=== PATIENT | female | born 1960 | race Caucasian/White ===

== ENCOUNTER 2025-06-05 12:38 | Inpatient (IN) | payer MEDICARE, MEDICAID ==
[~2025-06-05] VITALS: Ht 152.4 cm; Wt 63.0 kg
[~2025-06-05 12:38] MED LIST: PHE25R PR; ZOF4T PO
--- NOTE | 2025-06-05 14:59 | RADIOLOGY REPORT ---
X-ray left knee Technique: AP and lateral views REASON FOR EXAM: LT.KNEE PAIN AFTER FALL INDICATION: LT.KNEE PAIN AFTER FALL FINDINGS: No fractures or dislocations. No erosions or periosteal reaction. Articular surfaces are smooth. IMPRESSION: 1. No acute bony pathology
--- NOTE | 2025-06-05 15:00 | RADIOLOGY REPORT ---
X-ray left ankle Technique: AP lateral and oblique views REASON FOR EXAM: LT.ANKLE PAIN AFTER FALL INDICATION: LT.ANKLE PAIN AFTER FALL FINDINGS: No fractures or dislocations. No erosions or periosteal reaction. Articular surfaces are smooth. IMPRESSION: 1. No acute bony pathology
--- NOTE | 2025-06-05 19:45 | RADIOLOGY REPORT ---
EXAM: DI CHEST,SINGLE VIEW TECHNIQUE: Single frontal chest radiograph CLINICAL HISTORY: Weakness/ Portabl eplease COMPARISON: None FINDINGS/IMPRESSION: The lungs are clear. The cardiomediastinal silhouette is unremarkable. No pleural effusion or pneumothorax. No acute osseous abnormality.
[2025-06-05 19:49] LABS: MEAN PLATELET VOLUME 7.0 FL (7.4-10.4); RED CELL DISTRIBUTION WIDTH 13.7 % (11.5-14.5)
--- NOTE | 2025-06-05 19:54 | ELECTROCARDIOGRAPH REPORT ---
[facility] Test Date: 2025-06-05 Test Time: 19:50:23 Pat Name: CONCEPCION ROLLINS Department: [facility] Patient ID: [facility]-[id number] Room: [place] [address] Gender: F Food Service Manager: : 1960 Requested By: SIMI PADILLA Order Number: [id number] Reading MD: Dr. Boni Marie Measurements Intervals [place] Rate: 68 P: 66 CA: 161 QRS: 35 QRSD: 95 T: 31 QT: 421 QTc: 448 Interpretive Statements Sinus rhythm Abnormal R-wave progression, early transition Baseline wander in lead(s) I,III,aVL Electronically Signed On 06-15-2025 21:53:[address] Boni Marie Please click the below link to view image of tracing.
[2025-06-05 20:01] LABS: APTT 28 SECONDS (22-32); INR 1.0 INR
--- NOTE | 2025-06-05 20:04 | RADIOLOGY REPORT ---
COMPUTERIZED TOMOGRAPHY OF THE HEAD WITHOUT CONTRAST REASON FOR STUDY: ataxia. Fell 3 weeks ago on the left side. Blood thinners. COMPARISON: None TECHNIQUE: Helical tomographic scans were obtained through the brain. 2-D coronal and sagittal reformatted images are provided. Radiation optimization: All CT scans at this facility use at least one of these dose optimization techniques: Automated exposure control mA and/or kV adjustment per patient size (includes targeted exams where dose is matched to clinical indication) or iterative reconstruction. RADIATION DOSE: CTDI: 57 mGy DLP: 986 mGy-cm FINDINGS: No suspicious intracranial hyperdensity to suggest acute blood. There is an old lacunar infarct in the left centrum semiovale. There is no mass effect nor midline shift. There is moderate generalized volume loss with greater than expected enlargement of the CSF spaces, which could represent normal pressure hydrocephalus in the correct clinical setting. The suprasellar cistern is intact. There are scattered periventricular and deep white matter hypodensities that are most consistent with chronic microangiopathic changes. The calvarium is intact. The visualized mastoid air cells and paranasal sinuses are clear. IMPRESSION: No acute intracranial hemorrhage. Moderate generalized volume loss with chronic small vessel ischemic change. There is greater than expected compensatory enlargement of the ventricular system which could represent normal pressure hydrocephalus in the correct clinical setting. Correlate clinically for NPH.
[2025-06-05 20:17] LABS: CREATININE 0.82 MG/DL (0.40-0.90); TOTAL CARBON DIOXIDE 29.8 MMOL/L (24-32); eCRCL 52 ML/MIN; eGFR 70 ML/MIN
--- NOTE | 2025-06-05 20:18 | RADIOLOGY REPORT ---
History: Hip pain with unsteady gait Comparison Study: None Technique: Multidetector spiral CT of the pelvis was performed from iliac crests to pubic symphysis. Axial, coronal and sagittal multiplanar reformats were performed by the technologist on a separate workstation. Radiation Dose : CT Dose: CTDI volume is 19.74 mGy. Dose-length product is 675.62 mGy*cm Findings: Visualized bowel: Large volume of stool throughout the colon. Ascites: Absent Lymphadenopathy: No pelvic or mesenteric lymphadenopathy. Pelvis wall and Mesentery: Unremarkable. Pelvic Organs: Unremarkable Musculoskeletal: No aggressive focal bony lesions, acute fractures or dislocation. Bladder: Unremarkable IMPRESSION: 1. No acute pelvic finding. END IMPRESSION:
--- NOTE | 2025-06-05 21:07 | Physician Documentation ---
History of Present Illness ~ Chief Complaint: Leg Pain Stated Complaint: FELL 3 WKS AGO-L LEG INJURED Time Seen by MD: 15:00 Primary Medical Doctor: Dr. Choe, Dr. Muniz Mode of Arrival: Wheelchair HPI He is otherwise active 64-year-old female who swims at the local [facility] until 2- 1/2 weeks ago when she had a mechanical fall without loss of consciousness. Visited her primary care physician and has been being treated with was believed to be corticosteroid injections to the left hip for a sciatica. Since the fall patient has been having difficulty with ambulation. Reports she is unable to bear weight on the left lower extremity. No clear picture of ataxia yet just difficulty with ambulation. She does not specifically complain of left hip pain and has no obvious palsy to the left lower extremity or leg length discrepancy. She denies headache, incontinence, fever nausea or vomiting or diarrhea. Patient is otherwise healthy with a history of high blood pressure that is well controlled. Additionally patient reports a bilateral upper extremity weakness and yet no symptoms at all to the right lower extremity. She is referred to the emergency department by her primary care physician for neuromuscular workup. He has been no ocular disturbances though she does have a history of macular degeneration and there has been no scanning speech. Tetanus witin 5 years: No Medication Reconciliation Allergies: Coded Allergies: pneumococcal vaccine (Verified Allergy, Intermediate, 06/05/25) Scheduled Amlodipine* (Norvasc*), 1 TAB PO DAILY, (Reported) Atorvastatin Calcium* (Lipitor*), 1 TABLET PO HS, (Reported) Bupropion Hcl SR* (Wellbutrin SR*), 2 TAB PO DAILY, (Reported) Carvedilol* (Coreg*), 1 TAB PO DAILY, (Reported) Fexofenadine* (Louisa*), 1 TAB PO DAILY, (Reported) Gabapentin (Gabapentin), 1 TAB PO DAILY, (Reported) Levothyroxine Sodium* (Synthroid*), 1 TAB PO DAILY, (Reported) Lisinopril* (Lisinopril*), 1 TAB PO DAILY, (Reported) Secukinumab (Cosentyx Pen), 1 SYR SUBCUT Q28D, (Reported) Scheduled PRN Oxycodone Hcl IR* (Oxycodone IR*), 2 TAB PO Q8H PRN for moderate or severe pain, (Reported) Tramadol HCl (Tramadol HCl), 1 TAB PO Q6H PRN PRN for pain, (Reported) Discontinued Medications Ondansetron ODT* (Zofran ODT*), 8 MG PO Q6H Discontinued Reason: patient no longer taking proMETHazine (PHENERGAN rectal suppository), 25 MG DC Q6H Discontinued Reason: patient no longer taking Past Medical History Past Medical History: Hypertension Past Surgical History: noncontributory Alcohol Use: None Lives with: S/O Lives In: Home Occupation: disabled Physical Exam Vital Signs: Temperature: 97.8, Source: Oral, Heart Rate: 77, Respiratory Rate: 16, BP: 117/81, Pulse Oximetry: 92, Weight: 63.000 Oxygen Flow Rate: 0 Progress Results/Orders Results/Orders Orders - SIMI PADILLA PAC Ct Head (06/05/25 19:30) Ct Pelvis (06/05/25 19:30) Chest,Single View (06/05/25:25) Hospitalist Icu Consultation (06/05/25 21:05) Fill Out Med Reconciliation (06/05/25 21:05) Completed Orders - SIMI PADILLA PAC Ct Head (06/05/25 19:30) Ct Pelvis (06/05/25 19:30) Cbc/Diff (06/05/25 19:21) CMP (06/05/25 19:21) Stat Ekg (06/05/25 ) Hs Troponin I W Calculations (06/05/25 19:21) Urinalysis, Cult If Indicated (06/05/25 19:21) Chest,Single View (06/05/25:25) Pt Inr (06/05/25 19:21) PTT (06/05/25 19:21) CK (06/05/25 19:32) PHOS (06/05/25 19:32) TSH (06/05/25 19:32) Hgb A1c (06/05/25 19:32) Vital Signs 06/05/25 06/05/25 06/05/25 06/05/25 12:44 17:18 17:49 20:01 Temp 97.8 97.8 Pulse 70 65 77 Resp 18 14 16 B/P (MAP) 122/68 127/83 (98) 117/81 (93) Pulse Ox 98 98 92 O2 Flow Rate 0 0 0 Laboratory Tests Test 06/05/25 19:21 06/05/25 19:32 06/05/25 21:20 White Blood Count 5.4 Red Blood Count 3.77 L Hemoglobin 12.3 Hematocrit 35.4 Mean Corpuscular Volume 94.0 Mean Corpuscular Hemoglobin 32.8 H Mean Corpuscular Hemoglobin Concent 34.9 Red Cell Distribution Width 13.7 Platelet Count 319 Mean Platelet Volume 7.0 L Neutrophils (%) (Auto) 52.1 Lymphocytes (%) (Auto) 28.8 Monocytes (%) (Auto) 11.9 Eosinophils (%) (Auto) 5.9 Basophils (%) (Auto) 1.3 H Neutrophils # (Auto) 2.8 Lymphocytes # (Auto) 1.6 Monocytes # (Auto) 0.6 Eosinophils # (Auto) 0.3 Basophils # (Auto) 0.1 CBC Comment Erythrocyte Sedimentation Rate 38 H Prothrombin Time 10.1 INR International Normalized Ratio 1.0 Activated Partial Thromboplast Time 28 Coagulation Comments Sodium Level 140 Potassium Level 4.9 Chloride Level 104 Carbon Dioxide Level 29.8 Anion Gap 6 L Blood Urea Nitrogen 15 Creatinine 0.82 Estimated GFR/1.73 m2 70 BUN/Creatinine Ratio 18.3 Glucose Level 82 Hemoglobin A1c 5.8 Calcium Level 8.6 Phosphorus Level 4.1 Total Bilirubin 0.3 Aspartate Amino Transf (AST/SGOT) 28 Alanine Aminotransferase (ALT/SGPT) 31 Alkaline Phosphatase 100 Total Creatine Kinase 114 Troponin I High Sensitivity 4 Total Protein 6.8 Albumin 3.0 L Globulin 3.8 Albumin/Globulin Ratio 0.8 L Thyroid Stimulating Hormone (TSH) 3.35 Chemistry Comments Urine Specimen Description Straight cath Urine Color Yellow Urine Clarity Clear Urine pH 6.0 Urine Specific [place] <=1.005 Urine Protein Negative Urine Glucose (UA) Negative Urine Ketones Negative Urine Occult Blood Negative Urine Nitrite Negative Urine Bilirubin Negative Urine Urobilinogen 0.2 Urine Leukocyte Esterase Negative Urine Culture Indicated Not ind Volume Urine Centrifuged 10 ml Urine Comment Medical Decision Making Additional Comment 64-year-old female brought to the emergency department unfortunately due to the department being busy had a weight nearly 5 hours before being seen yet she did have plain film imaging obtained which was reassuring. Initial evaluation she is well oriented. Neurovascular exam is pertinent for 4/5 upper extremity strength and motor, left lower extremity 3/5 with an intact EHL, plantar flexion, dorsiflexion flexion at the knee and no pain with abduction or adduction of the hip. CT imaging obtained of the head to evaluate for Intracranial etiologies and also CT of the pelvis to evaluate for bony pathologies not excluding meds. Labs obtained and reviewed with the patient. Decision to consult for admission was at the time patient was put into room eight. She needs further evaluation and workup that included additional laboratory imaging and Neuro workup that may include MRIs for considerations of Neuro etiologies/pathologies, Autoimmune and/or Infectious etiologies pathologies. CT imaging of the head is reassuring yet suggested by the radiologist that imaging may represent in the right setting normal pressure hydrocephalus. Patient is without any ataxia essentially she can not bear weight, wet or wobbly. This interesting internal medicine case was discussed with the hospitalist kindly will admit for further workup. She remains while alert and oriented and pending transfer to the floor. Departure Disposition: 09 ADMITTED INPATIENT Admitted to Inpatient Unit: to hospitalist Impression: Primary Impression: Neuromuscular weakness Additional Impression: History of recent fall Referrals: NO PRIMARY CARE PROVIDER (PCP) Signature Scribe Signature: . Attestation: . SIMI PADILLA PAC Jun 05, 2025 21:07
[2025-06-05 21:54] LABS: LEUKOCYTE ESTERASE ,URINE NEGATIVE (Neg); NITRITES, URINE NEGATIVE (Neg); OCCULT BLOOD,URINE NEGATIVE (Neg)
[2025-06-05 21:57] LABS: UA COLLECTION TYPE STRAIGHT CATH
[2025-06-05] MEDS ORDERED: magnesium sulf-water 4G/100mL 100 ML IV PRN (22:10)
[2025-06-05] MEDS ORDERED: potassium Cl 40MEQ/1/2NS 520ml 520 ML IV PRN (22:10)
[2025-06-05] MEDS ORDERED: magnesium Cl slow-release 64mg tablet PO PRN (22:10)
[2025-06-05] MEDS ORDERED: potassium Cl 20 mEq SR tablet PO PRN ×2 (22:10)
[2025-06-05] MEDS ORDERED: magnesium sulf-water 2g/50mL 50 ML IV PRN (22:10)
[2025-06-05] MEDS ORDERED: mag hydrox/Alum hydrox/simeth 30ml oral suspension PO PRN (22:10)
[2025-06-05] MEDS ORDERED: magnesium hydroxide 30ml (MOM) UD suspension PO PRN (22:10)
--- NOTE | 2025-06-05 22:29 | CONSULTATION REPORT ---
History of Present Illness Providers to CC ~ Refering MD: Dr. Choe, Dr. Muniz Allergies: Coded Allergies: pneumococcal vaccine (Verified Allergy, Intermediate, 06/05/25) Home Medications Home Medications Active PHENERGAN rectal suppository (proMETHazine) 25 Mg Supp.rect 25 Mg PA Q6H Zofran ODT* (Ondansetron HCl) 4 Mg Tab.rapdis 8 Mg PO Q6H Physical Exam Last Vital Signs Recorded: Temperature: 97.8, Source: Oral, Heart Rate: 75, Respiratory Rate: 19, BP: 96/55, Pulse Oximetry: 97, Weight: 63.000 Results Diagram Lab Result Diagram: 06/05/25192006/05/251931 Assessment/Plan [place] Neuro Note # Demographics Consult Type: General Neurology Patient Location: Emergency Room First Name: Sharifa Last Name: RIA Date of : 1960 Age: 64 Gender: Female Facility: [facility] Time of Initial Page (): 06/05/2025 22:15 First Contact with Site ( Time): 06/05/2025 22:15 # HPI History: 64F reporting 2 weeks left leg strength, bilateral hand weakness. Also tingling/numbness. Progressive during that time, urinary retention and falls reported. Deep tendon reflexes reportedly reduced left leg. Patient reports "sciatica" for a number of years. # Scores Time of exam and NIHSS (): 06/05/2025 22:25 Level of Consciousness 1a: [0] = Alert; keenly responsive LOC Questions 1b: [0] = Answers both questions correctly LOC Commands 1c: [0] = Performs both tasks correctly Best Gaze 2: [0] = Normal Visual 3: [0] = No visual loss Facial Palsy 4: [0] = Normal symmetrical movements Motor Arm Left 5a: [0] = No drift Motor Arm Right 5b: [0] = No drift Motor Leg Left 6a: [0] = No drift Motor Leg Right 6b: [0] = No drift Limb Ataxia 7: [2] = Present in two limbs Sensory 8: [0] = Normal Best Language 9: [0] = No aphasia Dysarthria 10: [0] = Normal Extinction and Inattention 11: [0] = No abnormality NIHSS Total: 2 # PMH-FH-SH Past Medical History: macular degeneration, left leg sciatica # Data Time Head CT personally read by me ([place] Time): 06/05/2025 22:[address]: - per radiologist read - no bleed - preliminarily reviewed by me, please refer to radiology read for official reading # Assessment Impression: - Weakness and sensory disturbance bilateral arms and left leg, with urinary dysfunction. Taken together, this is concerning for C-spine compression or other pathology at that location. # Plan Labs: - B12 Imaging: (urgency: routine): MRI C-spine w/wo JONATHAN Other: - If patient has any neurological deterioration please call me back immediately - I have discussed my recommendations with the referring provider Additional Recommendations: If no etiology on C-spine MRI, then consider atypical guillain-barre or other demyelinating neuropathic process, LP for cell count, diff, protein and glucose would be a consideration in that case. Also would test for [place] virus if LP done. Disposition: observation # Logistics Attestation of consult completion: The patient is located at: [facility]. Facility staff participated in the visit. I performed this telemedicine visit from my offsite office utilizing interactive 2 way audio and visual telecommunication technology at the request of the onsite emergency room provider. Consent: Verbal consent was obtained from the patient and/or family for this encounter. Total time spent in telemedicine encounter: I spent 20 minutes reviewing clinical data and/or imaging, obtaining history, examining the patient, communicating with the onsite care team, and in preparation of this report. # Demographics First Name: Sharifa Last Name: RIA Facility: [facility] MARYAN HAMPTON MD Jun 05, 2025 22:29
[2025-06-05 22:35] LABS: PHOSPHORUS 4.1 MG/DL (2.3-4.5)
[2025-06-05] MEDS: LidoCAINE 2% Topical Jelly 11mL syringe (UROJET) TOP ONE (23:00)
--- NOTE | 2025-06-05 23:06 | HISTORY AND PHYSICAL-Residence ---
History & Physical Providers to CC Resident Creating Document: FRANCIS SMITH RES ~ History of Present Illness Primary Medical Doctor: Dr. Choe, Dr. Muniz Reason for Admit\Complaint: Left leg weakness History of Present Illness This is a 64-year-old female patient who presents in the ER for progressive weakness in the left leg and bilateral upper extremities for the past two weeks. Patient felt sudden strength loss in the left leg associated with diminished sensation. She also complains of tingling, numbness and weakness in both hands, more pronounced in the left hand. Patient has chronic left sciatic pain but states that never felt weakness or loss of sensation. She has been unable to ambulate since the symptoms started and has feeling of incomplete voiding, but denies dysuria, hematuria or suprapubic pain. Patient also denies head trauma, headache, blurred vision, slurred speech or syncope. No cardiac, respiratory or abdominal symptoms reported. Allergies: Coded Allergies: pneumococcal vaccine (Verified Allergy, Intermediate, 06/05/25) Home Medications Home Medications Active PHENERGAN rectal suppository (proMETHazine) 25 Mg Supp.rect 25 Mg [place] Q6H Zofran ODT* (Ondansetron HCl) 4 Mg Tab.rapdis 8 Mg PO Q6H Past Medical History Past Medical History Hypertension Hypothyroidism Hyperlipidemia Chronic back pain Chronic Left leg sciatic pain Chronic diarrhea Bilateral macular degeneration Depression ADHD Past Social History Smoking: Quit greater than 1 year (Patient quit smoking in 2005) Alcohol Use: None Drug Use: None Lives with: Family Lives In: Home Occupation: disabled ROS Constitutional: Reports: malaise, weakness Eyes: Denies: no symptoms reported, see HPI, pain, discharge, blurred vision, double vision, itching, photophobia, redness, tearing, other ENT: Denies: no symptoms reported, see HPI, ear pain, ear bleeding, ear discharge, hearing loss, ear ringing, nose pain, nose bleeding, nose congestion, nose discharge, throat pain, throat swelling, voice change, mouth pain, mouth bleeding, mouth swelling, other Respiratory: Denies: no symptoms reported, see HPI, cough, orthopnea, shortness of breath, SOB with exertion, SOB at rest, stridor, wheezing, hemoptysis, pain with breathing, other Cardiovascular: Denies: no symptoms reported, see HPI, chest pain, left arm pain, diaphoresis, lightheadedness, syncope, edema, palpitations, irregular heart rate, other Gastrointestinal: Denies: no symptoms reported, see HPI, abdomen distended, abdominal pain, nausea, vomiting, diarrhea, constipated, melena, hematemesis, hematochezia, rectal bleeding, rectal pain, dysphagia, poor appetite, poor fluid intake, other Genitourinary: Reports: decreased urine output Female Genitalia: Denies: no reported symptoms, see HPI, vaginal discharge, vaginal pain, pelvic pain, abnormal bleeding, dyspareunia, , other Neurological: Reports: dizziness, left sided numbness, left sided weakness Musculoskeletal: Reports: back pain Integumentary: Denies: no symptoms reported, see HPI, rash, itching, lesions, lumps, bruise(s), wound(s), laceration(s), dryness, change in color, other Allergic/Immunologic: Denies: no symptoms reported, see HPI, hives, itching, frequent infections, difficulty healing, other Hematologic/Lymphatic: Denies: no symptoms reported, see HPI, anemia, blood clots, easy bleeding, easy bruising, swollen glands, other Endocrine: Denies: no symptoms reported, see HPI, excessive sweating, flushing, intolerance to cold, intolerance to heat, increased hunger, increased thrist, increased urine, unexplained weight gain, unexplained weight loss, other Psychiatric: Denies: no symptoms reported, see HPI, depression, anxiety, sleeplessness, hopeless, suicidal, hallucinations, other Exam Vitals: Vital Signs Date Time Temp Pulse Resp B/P (MAP) Pulse Ox O2 Delivery O2 Flow Rate FiO2 06/05/25 22:06 97.8 75 19 96/55 (69) 97 0 General: Awake , alert, and oriented x4, resting comfortably in the bed, no acute distress HEENT: Atraumatic, normocephalic, EOMI, anicteric sclera ; pink conjunctiva Neck: Trachea midline. Supple, full range of motion, no JVD Cardiac: Regular rhythm and rate, no murmurs or gallop Respiratory: Equal breath sounds bilaterally, no tachypnea, no wheezing ,rub or rales, Chest: No accessory muscle use, lung bases clear to auscultation bilaterally Gastrointestinal: Abdomen symmetric, non-distended, soft, non-tender, normal bowel sounds, normoactive, no organomegaly Musculoskeletal: No cyanosis,clubbing or edema Skin: Warm and dry Neurological: - Mental status exam: alert and oriented. Memory and speech preserved. - Cranial nerve test: Cranial nerves 2-12 intact - Motor system: Normal muscle tone, left leg strength 4/5. Proximal upper extremity strength is preserved. Distal upper extremity strength is 4/5. No involuntary movements noted. - Sensory system: Reduced sensation in the left lower extremity. - Reflex testing: Diminished left patellar reflex 1+. Biceps and triceps reflex preserved. - Cerebellar: No dysdiadochokinesia or nystagmus. Gait and Romberg test unable to perform. Patient was not able to stand up by herself. Diagnostic Data Last Recorded Lab Results: 06/05/25192006/05/251931 Diagnostic Data: Laboratory Tests Test 06/05/25 19:32 Prothrombin Time 10.1 SECONDS (9.0-12.0) INR International Normalized Ratio 1.0 INR Activated Partial Thromboplast Time 28 SECONDS (22-32) Coagulation Comments Additional Plan Assessment 64-year-old female patient admitted for bilateral upper extremity and left leg weakness and paresthesia. Subacute left leg and bilateral upper extremity weakness - unclear etiology Differential diagnosis include cervical spine compression, demyelinating disease such as atypical Guillain-Hardin and normal pressure hydrocephalus Sudden onset left leg weakness Distal bilateral upper extremity weakness, numbness and tingling Recurrent falls and urinary dysfunction No fever, headache, vision or speech change Head CT: No acute intracranial hemorrhage. Moderate generalized volume loss with chronic small vessel ischemic change. There is greater than expected compensatory enlargement of the ventricular system which could represent normal pressure hydrocephalus in the correct clinical setting. Correlate clinically for NPH. Plan Tele neurology consulted Ordered head MRI and cervical spine MRI with and without contrast Ordered thoracic and lumbar spine MRI Ordered TSH, vitamin B12, ESR, rheumatoid factor and antinuclear antibodies Fall and aspiration precautions Neuro checks Physical therapy evaluation Comorbidities: Hypertension: Well-controlled hypertension, continue home medication Hypothyroidism: Ordered TSH, continue levothyroxine Hyperlipidemia: Ordered lipid panel, continue atorvastatin. Chronic back pain: Morphine/[place] p.r.n. Chronic diarrhea: Three daily bowel movements four months. Outpatient evaluation recommended. Bilateral macular degeneration: Outpatient management. Depression and ADHD: Continue home medication after med reconciliation. Code Status: Full code DVT prophylaxis: Lovenox Analgesia/sedation: Morphine/[place] Line/tube: PIV GI prophylaxis: None Nutrition: Regular diet Prognosis: Guarded Disposition: Admit to neuro floor. Pending MRI. Pending med reconciliation. Patient seen and evaluated using HIPPA compliant AV device Agree with plan as discussed with the resident Kirt Rodriguez MD Date of Service: Jun 05, 2025 Billing Provider: KIRT RODRIGUEZ MD, LUCAS, RES Jun 05, 2025 23:06 KIRT RODRIGUEZ MD Jun 06, 2025 02:59
[2025-06-05] MEDS ORDERED: FEXO180T94 PO (23:41)
[2025-06-05] MEDS ORDERED: TRAM50TA2 PO (23:41)
[2025-06-05] MEDS ORDERED: SECU150P2 SUBCUT (23:41)
[2025-06-05] MEDS ORDERED: OXYC-658 PO (23:41)
[2025-06-05] MEDS ORDERED: ATOR20TA PO (23:41)
[2025-06-05] MEDS ORDERED: SYN0.088T PO (23:41)
[2025-06-05] MEDS ORDERED: BUPR150T8 PO (23:41)
[2025-06-05] MEDS ORDERED: CARV-50 PO (23:47)
[2025-06-05] MEDS ORDERED: AMLO2.5T2 PO (23:47)
[2025-06-05] MEDS ORDERED: GABA-1405 PO (23:47)
[2025-06-05] MEDS ORDERED: LISI40TA20 PO (23:47)
[2025-06-06] VITALS (7 sets, daily range): BP systolic 105–129; BP diastolic 63–78; PULSE 68–92; RESP 12–16; TEMP 97.4–98; O2SAT 96–100
[2025-06-06] MEDS: HYDROcodone/acetaminophen 10/325mg tab PO PRN (00:15)
[2025-06-06 05:36] LABS: MEAN PLATELET VOLUME 7.3 FL (7.4-10.4); RED CELL DISTRIBUTION WIDTH 13.6 % (11.5-14.5)
[2025-06-06 06:05] LABS: CHOL/HDL RATIO 2.9 (0.00-4.99); CREATININE 0.84 MG/DL (0.40-0.90); LDL CHOLESTEROL 88 MG/DL (50-100); TOTAL CARBON DIOXIDE 26.2 MMOL/L (24-32); eCRCL 50 ML/MIN; eGFR 68 ML/MIN
[2025-06-06] MEDS: K and/or MAG REPLACEMENT MC SCH (07:15)
[2025-06-06] MEDS: levoTHYROXINE 88mcg tablet PO SCH (07:16)
[2025-06-06] MEDS: docusate sod 100mg capsule PO SCH (07:16)
[2025-06-06] MEDS: buPROPion SR 150mg tablet PO SCH (07:16)
[2025-06-06] MEDS: enoxaparin 40mg/0.4ml syringe SUBCUT SCH (07:17)
[2025-06-06] MEDS ORDERED: non-formulary drug (Gabapentin 1 TAB) PO SCH (08:00)
--- NOTE | 2025-06-06 18:08 | RADIOLOGY REPORT ---
PROCEDURE: MR MRI HEAD Indication: Progressive weakness left leg and bilateral upper extremities COMPARISON: CT CT HEAD on DOS: 06/05/25 TECHNIQUE: Multiplanar multisequence images of the brain are obtained. FINDINGS: There is no abnormal diffusion restriction. There is no intracranial hemorrhage. No extra-axial fluid collection, mass effect or midline shift. The ventricles are moderately prominent size. Mild periventricular and subcortical white matter T2 and FLAIR hyperintense changes.. The cisterns are patent. Normal intracranial flow voids are preserved. No abnormal susceptibility signal. Mild global cerebral volume loss. Mucosal thickening ethmoids. Mastoids well pneumatized.. The visualized orbits are unremarkable. IMPRESSION: No acute cerebrovascular ischemia. Prominent size of the lateral ventricles. Correlate for entities such as normal pressure hydrocephalus. Mild chronic microvascular ischemic changes.
--- NOTE | 2025-06-06 18:19 | RADIOLOGY REPORT ---
PROCEDURE: MR MRI C SPINE, MR MRI THORACIC SPINE, MR MRI LUMBAR SPINE Indication: Progressive weakness left leg and bilateral upper extremities COMPARISON: None TECHNIQUE: Multiplanar multisequence images of the the cervical and thoracic spine are obtained. FINDINGS: MRI cervical spine Examination degraded by motion. Cervical heights are maintained. Moderate to severe multilevel disc space narrowing and desiccation. Degenerative edematous endplate changes most pronounced at C4, C5 and C6. No prevertebral edema. Atlantooccipital, atlantoaxial articulations intact. There is increased T2 signal within the cervical cord at the C3-4 level secondary to cord compression. There is a region of increased T2 signal within the cervical cord at the level of the C5 vertebral body level measuring 3 x 3 mm. C2-3: Small disc osteophyte complex. Narrowing of the ventral and dorsal CSF spaces. Thecal sac measures 10 mm AP. No spinal canal stenosis. Djmv-bi-dcmgansh bilateral neural foraminal stenosis. C3-4: Large disc osteophyte complex. Flavum hypertrophy. Effacement of the ventral and dorsal CSF space with compression of the cord. Thecal sac measures 4 mm AP. Severe spinal canal stenosis. Increased T2 signal within the cervical cord. Moderate to severe right and moderate left neural foraminal stenosis. C4-5: Disc osteophyte complex narrowing ventral and dorsal CSF spaces. Thecal sac measures 7 mm AP. Moderate spinal canal stenosis. Moderate to severe bilateral neural foraminal stenosis secondary to facet and uncovertebral hypertrophy. C5-6: Disc osteophyte complex narrowing the ventral and dorsal CSF spaces. Thecal sac measures 8 mm AP. Yjwo-lf-wfpacaei spinal canal stenosis. Severe right and moderate left neural foraminal stenosis secondary to facet uncovertebral hypertrophy. C6-7: Small disc osteophyte complex. Thecal sac 9 mm AP. Mild spinal canal stenosis. Severe bilateral neural foraminal stenosis. C7-T1: No spinal canal stenosis. Moderate to severe right and yltr-rj-pnydaedk left neural foraminal stenosis. MRI thoracic spine: The Thoracic vertebral body heights are maintained. There is bbmc-al-jwfdgdjh multilevel disc space narrowing and desiccation. T8-9 there is a central disc protrusion extending 5 mm which compresses upon the ventral aspect of the cord. Thecal sac measures 7 mm AP at this level consistent with moderate spinal canal stenosis No high-grade neural foraminal stenosis. No abnormal marrow edema. MRI lumbar spine: The lumbar vertebral body heights are maintained. Moderate to severe multilevel disc space narrowing and desiccation most pronounced at L4-5. Degenerative fatty endplate changes at L2-3. There are also marrow edematous changes at L2-3. The conus terminates at the level of the L1-2 disc space level. T12-L1: Small disc protrusion. Ekym-tq-mbjdaaxk facet and flavum hypertrophy no spinal canal stenosis. Mild bilateral neural foraminal stenosis. L1-2: 3 mm disc protrusion. Lewn-dl-omahopql facet and flavum hypertrophy. No spinal canal stenosis. Rsun-ee-qenooicz bilateral neural foraminal stenosis. L2-3: 3 mm disc protrusion. Acev-tk-iadoiwgg facet and flavum hypertrophy. No spinal canal stenosis moderate to severe left and moderate right neural foraminal stenosis. L3-4: 2 mm disc protrusion. Dzip-xy-gfgzuzri facet and flavum hypertrophy. No spinal canal stenosis. Moderate to severe bilateral neural foraminal stenosis. L4-5: Broad-based disc protrusion extending 5 mm posteriorly. Severe facet and flavum hypertrophy. Thecal sac measures 5 mm AP. Severe spinal canal stenosis. Severe bilateral neural foraminal stenosis. L5-S1: 3 mm disc protrusion. Severe facet and flavum hypertrophy thecal sac measures 6 mm AP. Moderate spinal canal stenosis. Severe bilateral neural foraminal stenosis. Colonic diverticular disease.m perineural ceases at S2 measuring 1.8 cm. IMPRESSION: Examination degraded by motion. Cervical Spine: Moderate to severe cervical degenerative disc disease. Severe spinal canal stenosis at C3-4 where there is compression/flattening of the cord with increased T2 signal in the cord either representing cord edema or myelomalacia. Recommend neurosurgical consultation. Moderate spinal canal stenosis at C4-5. Kmjs-bm-nddrjmdr spinal canal stenosis C5-6. Mild spinal canal stenosis C6-7. Multilevel moderate to severe cervical neural foraminal stenosis described. Thoracic Spine: Region of increased T2 signal within the cervical cord at the level the C5 level measuring 3 x 3 mm, possibly myelomalacia however underlying cervical lesion can not be ruled out. Recommend cervical spine MRI with contrast. Hcdg-il-lsfbawuq thoracic degenerative disc disease. There is a disc protrusion extending 5 mm at T8-9 which compresses upon the ventral aspect of the cord resulting in moderate spinal canal stenosis at T8-9. Lumbar spine: Severe spinal canal stenosis at L4-5. Moderate spinal canal stenosis L5-S1. Multilevel moderate to severe neural foraminal stenosis in the lumbar spine most pronounced at L4-5 and L5-S1.
--- NOTE | 2025-06-06 19:06 | PROGRESS NOTE- Residence ---
Progress Note - Resident Providers to CC Resident Creating Document: NASIMA LATIF RES ~ Antibiotic Timeout Antibiotic Ordered?: No Subjective patient was examined at bed side, she was sleeping intially and second time she was awake, alert and answer questions with out discomfort. Patient denies any new symptoms Objective Vital Signs Date Time Temp Pulse Resp B/P (MAP) Pulse Ox O2 Delivery O2 Flow Rate FiO2 06/06/25 14:15 15 06/06/25 10:00 98.0 80 105/63 (77) 97 Room Air 06/05/25 22:06 0 Result Diagram: 06/06/25 0455 06/06/25 0455 Awake , alert, and oriented x4, resting comfortably in the bed, no acute distress HEENT: Atraumatic, normocephalic, EOMI, anicteric sclera ; pink conjunctiva Neck: Trachea midline. Supple, full range of motion, no JVD Cardiac: Regular rhythm and rate, no murmurs or gallop Respiratory: Equal breath sounds bilaterally, no tachypnea, no wheezing ,rub or rales, Chest: No accessory muscle use, lung bases clear to auscultation bilaterally Gastrointestinal: Abdomen symmetric, non-distended, soft, non-tender, normal bowel sounds, normoactive, no organomegaly Musculoskeletal: No cyanosis,clubbing or edema Skin: Warm and dry Neurological: patient is alert, oriented. Memory and speech preserved. Cranial nerves II-XII intact Hypotonia in all 4 limbs. B/L lOWER EXTREMITY POWER- 3/5. Proximal upper extremity strength is preserved. Distal upper extremity strength is 4/5. No involuntary movements noted. Assyemtric Loss of sensations over all 4 limbs. cerebellum is intact. No menigeal signs. Coagulation Studies Laboratory Tests Test 06/05/25 19:32 Prothrombin Time 10.1 SECONDS (9.0-12.0) INR International Normalized Ratio 1.0 INR Activated Partial Thromboplast Time 28 SECONDS (22-32) Coagulation Comments Advance Care Planning Advanced Care plannin - 30 Minutes Assessment Assessment 64-year-old female patient admitted for Assymetric Quadriparesis.we will comnsult neurosufrgeon. Plan Plan 64-year-old female patient admitted for bilateral upper extremity and left leg weakness and paresthesia. Subacute Assyemtric Quadriparesis Diffuse Moderate to Severe Cervical Spinal Canal Stenosis C3-4 Cord Comnpression compression of T8-9 with Disc Protrusion Multilevel moderate to severe neural foraminal stenosis in the lumbar spine most pronounced at L4-5 and L5-S1. 2/2 Cord compression with Severe spinal canal stenosis at L4-5, Moderate spinal canal stenosis L5-S1. evere neural foraminal stenosis in the lumbar spine most pronounced at L4-5 and L5-S1. Severe spinal canal stenosis at L4-5. Moderate spinal canal stenosis L5-S1. Vitals -Stable h/h- 11.5/33.5 Pending THAIS MRI Head - No acute cerebrovascular ischemia. Prominent size of the lateral ventricles. Correlate for entities such as normal pressure hydrocephalus.Mild chronic microvascular ischemic changes. Cervical Spine MRI- Moderate to severe cervical degenerative disc disease. Severe spinal canal stenosis at C3-4 where there is compression/flattening of the cord with increased T2 signal in the cord either representing cord edema or myelomalacia. Recommend neurosurgical consultation. Moderate spinal canal stenosis at C4-5. Wluf-pb-easnzgwz spinal canal stenosis C5-6. Mild spinal canal stenosis C6-7. Multilevel moderate to severe cervical neural foraminal stenosis described. Thoracic Spine: Region of increased T2 signal within the cervical cord at the level the C5 level measuring 3 x 3 mm, possibly myelomalacia however underlying cervical lesion can not be ruled out. Recommend cervical spine MRI with contrast. Ytqc-hy-qhkvszas thoracic degenerative disc disease. There is a disc protrusion extending 5 mm at T8-9 which compresses upon the ventral aspect of the cord resulting in moderate spinal canal stenosis at T8-9. Lumbar spine: Severe spinal canal stenosis at L4-5. Moderate spinal canal stenosis L5-S1. Multilevel moderate to severe neural foraminal stenosis in the lumbar spine most pronounced at L4-5 and L5-S1. Thoracic Spine MRI - Region of increased T2 signal within the cervical cord at the level the C5 level measuring 3 x 3 mm, possibly myelomalacia however underlying cervical lesion can not be ruled out. Recommend cervical spine MRI with contrast. Wsnu-cm-ovvustrs thoracic degenerative disc disease.There is a disc protrusion extending 5 mm at T8-9 which compresses upon the ventral aspect of the cord resulting in moderate spinal canal stenosis at T8-9. Lumbar spine:Severe spinal canal stenosis at L4-5.Moderate spinal canal stenosis L5-S1. Multilevel moderate to severe neural foraminal stenosis in the lumbar spine most pronounced at L4-5 and L5-S1. Lumber Spine MRI: Cervical Spine: Moderate to severe cervical degenerative disc disease. Severe spinal canal stenosis at C3-4 where there is compression/flattening of the cord with increased T2 signal in the cord either representing cord edema or myelomalacia. Recommend neurosurgical consultation. Moderate spinal canal stenosis at C4-5. Eqkm-kx-yyfkermn spinal canal stenosis C5-6. Mild spinal canal stenosis C6-7. Multilevel moderate to severe cervical neural foraminal stenosis described. Thoracic Spine: Region of increased T2 signal within the cervical cord at the level the C5 level measuring 3 x 3 mm, possibly myelomalacia however underlying cervical lesion can not be ruled out. Recommend cervical spine MRI with contrast. Scfp-ws-uvmudlgm thoracic degenerative disc disease. There is a disc protrusion extending 5 mm at T8-9 which compresses upon the ventral aspect of the cord resulting in moderate spinal canal stenosis at T8-9. Lumbar spine:Severe spinal canal stenosis at L4-5.Moderate spinal canal stenosis L5-S1.Multilevel moderate to severe neural foraminal stenosis in the lumbar spine most pronounced at L4-5 and L5-S1. Plan: Neurosurgeon will be consulted Code Status: Full code DVT prophylaxis: Lovenox Analgesia/sedation: Morphine/[place] Line/tube: PIV GI prophylaxis: None Nutrition: Regular diet Prognosis: Guarded Disposition : Patient is monitored in Ortho/Neuro and MRI shows -Cord compression with Severe spinal canal stenosis at L4-5, Moderate spinal canal stenosis L5-S1. neural foraminal stenosis in the lumbar spine most pronounced at L4-5 and L5-S1 and in view of MRI Neurosurgeon will be Consulted meanwhile we will start Solu-Medrol high dose. Nasima latif PGY1 PGY-2 Note & addendum PGY2 resident attestation: I have seen and evaluated the patient independently. I have reviewed the history, physical examination, laboratory and imaging findings and the assessment and plan documented by the PGY1 resident. I agree with the findings and plan as documented with the following additions/modifications: Seen & Reviewed & edited the patient note. I agree with Management Plan. In view of Cervical,Thoracic Cord Compression and possible Cauda Equina Syndrome, We tried to Consult Neurosurgeon Dr. Michael Enriquez but we couldnot able to get hold of Him.we left the voicemail meanwhile we gave signout to Night Senior Resident for Neurosurgeon consultation & Started on Methyl Prednisolone high dose bag after informing the pharmacist (Mr. VILLALOBOS ).we will touch base with him if not we will try to transfer to Higher center for possible neurosurgical Intervention. Date of Service: Jun 06, 2025 Billing Provider: MARICRUZ WRIGHT MD Common Visit Codes: [id number] INP/OBS CARE(HIGH) NASIMA LATIF, RES Jun 06, 2025 19:06 SABINA BRAMBILA, RES Jun 06, 2025 19:35 MARICRUZ WRIGHT MD Jun 26, 2025 16:20
[2025-06-06] MEDS: methylPREDNISolone sod succ 1,000 MG in dextrose 5%-water 50ml 50 ML IV SCH (19:45)
[2025-06-06] MEDS ORDERED: [UNRECOGNIZED DRUG - OTHER] IV SCH (21:30)
[2025-06-06] MEDS ORDERED: WATER FOR INJECTION STERILE IV SCH (21:30)
[2025-06-06] MEDS ORDERED: METHYLPREDNISOLONE SOD SUCC IV SCH (21:30)
[2025-06-07] VITALS (7 sets, daily range): BP systolic 114–155; BP diastolic 64–83; PULSE 92–109; RESP 14–18; TEMP 96.7–99.3; O2SAT 94–99
[2025-06-07 06:03] LABS: MEAN PLATELET VOLUME 7.3 FL (7.4-10.4); RED CELL DISTRIBUTION WIDTH 13.5 % (11.5-14.5)
[2025-06-07 06:13] LABS: CREATININE 0.65 MG/DL (0.40-0.90); TOTAL CARBON DIOXIDE 25.0 MMOL/L (24-32); eCRCL 65 ML/MIN; eGFR > 90 ML/MIN
[2025-06-07 09:12] LABS: ANTINUCLEAR ANTIBODIES Positive (Negative)
[2025-06-07] MEDS ORDERED: ketorolac trometh 15mg/ml vial 15 MG/ML ML IV ONE (14:10)
--- NOTE | 2025-06-07 15:18 | PROGRESS NOTE- Residence ---
Progress Note - Resident Providers to CC Resident Creating Document: NASIMA LATIF RES ~ Antibiotic Timeout Antibiotic Ordered?: No Subjective patient was examined at bed side, she is comfortable and reported improvement in her symptoms Objective Vital Signs Date Time Temp Pulse Resp B/P (MAP) Pulse Ox O2 Delivery O2 Flow Rate FiO2 06/07/25 14:32 16 06/07/25 10:00 99.3 109 133/81 (98) 94 Room Air 06/05/25 22:06 0 Result Diagram: 06/07/25 0521 06/07/25 0521 Awake , alert, and oriented x4, resting comfortably in the bed, no acute distress HEENT: Atraumatic, normocephalic, EOMI, anicteric sclera ; pink conjunctiva Neck: Trachea midline. Supple, full range of motion, no JVD Cardiac: Regular rhythm and rate, no murmurs or gallop Respiratory: Equal breath sounds bilaterally, no tachypnea, no wheezing ,rub or rales, Chest: No accessory muscle use, lung bases clear to auscultation bilaterally Gastrointestinal: Abdomen symmetric, non-distended, soft, non-tender, normal bowel sounds, normoactive, no organomegaly Musculoskeletal: No cyanosis,clubbing or edema Skin: Warm and dry Neurological: patient is alert, oriented. Memory and speech preserved. Cranial nerves II-XII intact Normal motor strength and Sensation in bilateral upper extremities Biceps, knee is +3 reflexes Left lower extremity- Diminished sensation and motor strength 2/5 with 1+ Relexes Right lower extremity- Normal sensation and motor Strenght 3/5 with brisk relexes Marcial sign present on the right. No dysdiadochokinesia/nystagmus. Digital rectal examination: Rectal tone is reduced and it is very minimal. Coagulation Studies Laboratory Tests Test 06/05/25 19:32 Prothrombin Time 10.1 SECONDS (9.0-12.0) INR International Normalized Ratio 1.0 INR Activated Partial Thromboplast Time 28 SECONDS (22-32) Coagulation Comments Advance Care Planning Advanced Care plannin - 30 Minutes Assessment Assessment 64-year-old female with history of hypothyroid and hyperlipidemia admitted for Asymmetric Quadriparesis. Plan Plan 64-year-old female patient admitted for bilateral upper extremity and left leg weakness and paresthesia. Subacute Assyemtric Quadriparesis Diffuse Moderate to Severe Cervical Spinal Canal Stenosis C3-4 Cord Compression compression of T8-9 with Disc Protrusion Multilevel moderate to severe neural foraminal stenosis in the lumbar spine most pronounced at L4-5 and L5-S1. 2/2 Cord compression with Severe spinal canal stenosis at L4-5, Moderate spinal canal stenosis L5-S1. evere neural foraminal stenosis in the lumbar spine most pronounced at L4-5 and L5-S1. Severe spinal canal stenosis at L4-5. Moderate spinal canal stenosis L5-S1. Vitals -Stable h/h- 11.5/33.5 Pending THAIS MRI Head - No acute cerebrovascular ischemia. Prominent size of the lateral ventricles. Correlate for entities such as normal pressure hydrocephalus.Mild chronic microvascular ischemic changes. Cervical Spine MRI- Moderate to severe cervical degenerative disc disease. Severe spinal canal stenosis at C3-4 where there is compression/flattening of the cord with increased T2 signal in the cord either representing cord edema or myelomalacia. Recommend neurosurgical consultation. Moderate spinal canal stenosis at C4-5. Erza-tl-bydhizbv spinal canal stenosis C5-6. Mild spinal canal stenosis C6-7. Multilevel moderate to severe cervical neural foraminal stenosis described. Thoracic Spine: Region of increased T2 signal within the cervical cord at the level the C5 level measuring 3 x 3 mm, possibly myelomalacia however underlying cervical lesion can not be ruled out. Recommend cervical spine MRI with contrast. Rxdu-qp-gfwkxieo thoracic degenerative disc disease. There is a disc protrusion extending 5 mm at T8-9 which compresses upon the ventral aspect of the cord resulting in moderate spinal canal stenosis at T8-9. Lumbar spine: Severe spinal canal stenosis at L4-5. Moderate spinal canal stenosis L5-S1. Multilevel moderate to severe neural foraminal stenosis in the lumbar spine most pronounced at L4-5 and L5-S1. Thoracic Spine MRI - Region of increased T2 signal within the cervical cord at the level the C5 level measuring 3 x 3 mm, possibly myelomalacia however underlying cervical lesion can not be ruled out. Recommend cervical spine MRI with contrast. Fyed-er-jtvpirls thoracic degenerative disc disease.There is a disc protrusion extending 5 mm at T8-9 which compresses upon the ventral aspect of the cord resulting in moderate spinal canal stenosis at T8-9. Lumbar spine:Severe spinal canal stenosis at L4-5.Moderate spinal canal stenosis L5-S1. Multilevel moderate to severe neural foraminal stenosis in the lumbar spine most pronounced at L4-5 and L5-S1. Lumber Spine MRI: Cervical Spine: Moderate to severe cervical degenerative disc disease. Severe spinal canal stenosis at C3-4 where there is compression/flattening of the cord with increased T2 signal in the cord either representing cord edema or myelomalacia. Recommend neurosurgical consultation. Moderate spinal canal stenosis at C4-5. Dtkd-pg-tldgavei spinal canal stenosis C5-6. Mild spinal canal stenosis C6-7. Multilevel moderate to severe cervical neural foraminal stenosis described. Thoracic Spine: Region of increased T2 signal within the cervical cord at the level the C5 level measuring 3 x 3 mm, possibly myelomalacia however underlying cervical lesion can not be ruled out. Recommend cervical spine MRI with contrast. Ocay-bm-gfbgmxup thoracic degenerative disc disease. There is a disc protrusion extending 5 mm at T8-9 which compresses upon the ventral aspect of the cord resulting in moderate spinal canal stenosis at T8-9. Lumbar spine:Severe spinal canal stenosis at L4-5.Moderate spinal canal stenosis L5-S1.Multilevel moderate to severe neural foraminal stenosis in the lumbar spine most pronounced at L4-5 and L5-S1. Plan: Neurosurgeon will be consulted 06/07/25 Today patient shown improvement in her symptoms after starting methylprednisone 1000 mg-58 mL per hour Blood pressure-133/81, respiratory rate-18, pulse oxygen 94 on room, WBC-3.7, H&H-12.7/36.9 THAIS-positive Plan Continue methylprednisone 1000 mg-58 mL/hour -pharmacy to dose Given 15 mg IV ketorolac once Dr. Michael Schulz seen the patient at bedside and recommended cervical collar for neck supple, baclofen 10 mg t.i.d. p.o., continue high-dose methylprednisolone for 3 days, strict bedrest Hypothyroidism continue home med levothyroxine 88 mcg Po daily Hyperlipidemia Continue home med atorvastatin 20 mg p.o. Code Status: Full code DVT prophylaxis: Lovenox Analgesia/sedation: Morphine/[place] Line/tube: PIV GI prophylaxis: None Nutrition: Regular diet Prognosis: Guarded Disposition : Patient is monitored in Ortho/Neuro and MRI shows -Cord compression with Severe spinal canal stenosis at L4-5, Moderate spinal canal stenosis L5-S1. neural foraminal stenosis in the lumbar spine most pronounced at L4-5 and L5-S1 and today patient showed improvement in her symptoms after starting Solu-Medrol high dose. Dr. Michael Schulz seen the patient at bedside and recommended cervical collar for neck supple, baclofen 10 mg t.i.d. p.o., continue high-dose methylprednisolone for 3 days, strict bedrest Nasima latif PGY1 PGY2 resident attestation: I have seen and evaluated the patient independently. I have reviewed the history, physical examination, laboratory and imaging findings and the assessment and plan documented by the PGY1 resident. I agree with the findings and plan as documented with the following additions/modifications: Seen & Reviewed & edited the patient note. I agree with Management Plan. Initially we tried to contact Dr. Michael Enriquez on yesterday but we could not able to get hold of him and we initiated transfer after talking with insurance case manager Ms. Domínguezlene however we again touched base with Dr. Michael Enriquez. We spoke with Dr. Michael Enriquez and he agrees to see the patient on today night and recommended for plain CT without contrast lumbar spine to assess bone density and possible surgical intervention on Thursday. He informed us that it may be cauda equina syndrome and he is okay with steroids. Date of Service: Jun 07, 2025 Billing Provider: MARICRUZ WRIGHT MD Common Visit Codes: [id number] INP/OBS CARE(HIGH) NASIMA LATIF, RES Jun 07, 2025 15:18 SABINA BRAMBILA, RES Jun 07, 2025 18:34 MARICRUZ WRIGHT MD Jun 26, 2025 16:20
[2025-06-07] MEDS: ketorolac trometh 15mg/ml vial 15 MG/ML ML IV ONE (16:32)
--- NOTE | 2025-06-07 19:34 | RADIOLOGY REPORT ---
EXAM: CT CT LUMBAR SPINE HISTORY: evaluate bone density, possible surgical consult; abnormal MRI; COMPARISON: MR MRI LUMBAR SPINE on DOS: 06/06/25, MR MRI THORACIC SPINE on DOS: 06/06/25, MR MRI C SPINE on DOS: 06/06/25, CT CT PELVIS on DOS: 06/05/25 CTDIvol 15.65 mGy, DLP 457.56 mGy*cm. TECHNIQUE: Multiple axial CT images of the spine were obtained using bone algorithm. Axial and coronal reformatting was done. Bone and soft tissue windows were reviewed. FINDINGS: Bones appears slightly demineralized. No discrete bony lesion. No evidence of definite acute fracture, spinal dislocation, or significant appearing acute subluxation is seen. Severe degenerative disc disease throughout the lumbar spine with discrete loss desiccation, and plate osteophytes. IMPRESSION: 1. No definite acute fracture. 2. Severe degenerative disc disease throughout the lumbar spine. 3. Bones appear mildly demineralized with no discrete lesion seen on CT.
[2025-06-08] VITALS (7 sets, daily range): BP systolic 125–135; BP diastolic 74–84; PULSE 82–103; RESP 16–20; TEMP 97.8–98.5; O2SAT 92–99
[2025-06-08 05:30] LABS: MEAN PLATELET VOLUME 7.4 FL (7.4-10.4); RED CELL DISTRIBUTION WIDTH 13.7 % (11.5-14.5)
[2025-06-08 05:42] LABS: CREATININE 0.83 MG/DL (0.40-0.90); TOTAL CARBON DIOXIDE 25.2 MMOL/L (24-32); eCRCL 51 ML/MIN; eGFR 69 ML/MIN
[2025-06-08] MEDS: MULTIVIT-MIN/FERROUS GLUCONATE 9 MG/15 ML LIQUID PO SCH (09:00)
[2025-06-08] MEDS: HYDROcodone/acetaminophen 5mg/325mg tablet PO PRN (12:58)
--- NOTE | 2025-06-08 19:50 | PROGRESS NOTE- Residence ---
Progress Note - Resident Providers to CC Resident Creating Document: NASIMA LATIF, THERON ~ Antibiotic Timeout Antibiotic Ordered?: No Subjective Patient is examined at the bedside and she reports improvement in her symptoms She denies any new concerns Objective Vital Signs Date Time Temp Pulse Resp B/P (MAP) Pulse Ox O2 Delivery O2 Flow Rate FiO2 06/08/25 12:58 16 06/08/25 08:31 97 Room Air 0.0 06/08/25 07:00 98.5 99 129/84 (99) Result Diagram: 06/08/25 0504 06/08/25 0504 Awake , alert, and oriented x4, resting comfortably in the bed, no acute distress HEENT: Atraumatic, normocephalic, EOMI, anicteric sclera ; pink conjunctiva Neck: Trachea midline. Supple, full range of motion, no JVD Cardiac: Regular rhythm and rate, no murmurs or gallop Respiratory: Equal breath sounds bilaterally, no tachypnea, no wheezing ,rub or rales, Chest: No accessory muscle use, lung bases clear to auscultation bilaterally Gastrointestinal: Abdomen symmetric, non-distended, soft, non-tender, normal bowel sounds, normoactive, no organomegaly Musculoskeletal: No cyanosis,clubbing or edema Skin: Warm and dry Neurological: patient is alert, oriented. Memory and speech preserved. Cranial nerves II-XII intact Normal motor strength and Sensation in bilateral upper extremities Biceps, knee is +3 reflexes Left lower extremity- Diminished sensation and motor strength 2/5 with 1+ Relexes Right lower extremity- Normal sensation and motor Strenght 3/5 with brisk relexes Marcial sign present on the right No dysdiadochokinesia/nystagmus Digital rectal examination: Rectal tone is reduced and it is very minimal. Coagulation Studies Laboratory Tests Test 06/05/25 19:32 Prothrombin Time 10.1 SECONDS (9.0-12.0) INR International Normalized Ratio 1.0 INR Activated Partial Thromboplast Time 28 SECONDS (22-32) Coagulation Comments Advance Care Planning Advanced Care plannin - 30 Minutes Assessment Assessment 64-year-old female with history of hypothyroid and hyperlipidemia admitted for Asymmetric Quadriparesis. Plan Plan 64-year-old female patient admitted for bilateral upper extremity and left leg weakness and paresthesia. Subacute Assyemtric Quadriparesis Diffuse Moderate to Severe Cervical Spinal Canal Stenosis C3-4 Cord Compression compression of T8-9 with Disc Protrusion Multilevel moderate to severe neural foraminal stenosis in the lumbar spine most pronounced at L4-5 and L5-S1. Myelomalcia/Spinal cord edema of C3-C4 2/2 Cord compression with Severe spinal canal stenosis at L4-5, Moderate spinal canal stenosis L5-S1. evere neural foraminal stenosis in the lumbar spine most pronounced at L4-5 and L5-S1. Severe spinal canal stenosis at L4-5. Moderate spinal canal stenosis L5-S1. Vitals -Stable h/h- 11.5/33.5 Pending THAIS MRI Head - No acute cerebrovascular ischemia. Prominent size of the lateral ventricles. Correlate for entities such as normal pressure hydrocephalus.Mild chronic microvascular ischemic changes. Cervical Spine MRI- Moderate to severe cervical degenerative disc disease. Severe spinal canal stenosis at C3-4 where there is compression/flattening of the cord with increased T2 signal in the cord either representing cord edema or myelomalacia. Recommend neurosurgical consultation. Moderate spinal canal stenosis at C4-5. Rfke-je-qmoqsjyy spinal canal stenosis C5-6. Mild spinal canal stenosis C6-7. Multilevel moderate to severe cervical neural foraminal stenosis described. Thoracic Spine: Region of increased T2 signal within the cervical cord at the level the C5 level measuring 3 x 3 mm, possibly myelomalacia however underlying cervical lesion can not be ruled out. Recommend cervical spine MRI with contrast. Qygn-fx-znisknog thoracic degenerative disc disease. There is a disc protrusion extending 5 mm at T8-9 which compresses upon the ventral aspect of the cord resulting in moderate spinal canal stenosis at T8-9. Lumbar spine: Severe spinal canal stenosis at L4-5. Moderate spinal canal stenosis L5-S1. Multilevel moderate to severe neural foraminal stenosis in the lumbar spine most pronounced at L4-5 and L5-S1. Thoracic Spine MRI - Region of increased T2 signal within the cervical cord at the level the C5 level measuring 3 x 3 mm, possibly myelomalacia however underlying cervical lesion can not be ruled out. Recommend cervical spine MRI with contrast. Flbm-tr-njrvdief thoracic degenerative disc disease.There is a disc protrusion extending 5 mm at T8-9 which compresses upon the ventral aspect of the cord resulting in moderate spinal canal stenosis at T8-9. Lumbar spine:Severe spinal canal stenosis at L4-5.Moderate spinal canal stenosis L5-S1. Multilevel moderate to severe neural foraminal stenosis in the lumbar spine most pronounced at L4-5 and L5-S1. Lumber Spine MRI: Cervical Spine: Moderate to severe cervical degenerative disc disease. Severe spinal canal stenosis at C3-4 where there is compression/flattening of the cord with increased T2 signal in the cord either representing cord edema or myelomalacia. Recommend neurosurgical consultation. Moderate spinal canal stenosis at C4-5. Cfuu-fk-ylkfcyoh spinal canal stenosis C5-6. Mild spinal canal stenosis C6-7. Multilevel moderate to severe cervical neural foraminal stenosis described. Thoracic Spine: Region of increased T2 signal within the cervical cord at the level the C5 level measuring 3 x 3 mm, possibly myelomalacia however underlying cervical lesion can not be ruled out. Recommend cervical spine MRI with contrast. Patc-nu-jrbffkpi thoracic degenerative disc disease. There is a disc protrusion extending 5 mm at T8-9 which compresses upon the ventral aspect of the cord resulting in moderate spinal canal stenosis at T8-9. Lumbar spine:Severe spinal canal stenosis at L4-5.Moderate spinal canal stenosis L5-S1.Multilevel moderate to severe neural foraminal stenosis in the lumbar spine most pronounced at L4-5 and L5-S1. Plan: Neurosurgeon will be consulted 06/07/25 Today patient shown improvement in her symptoms after starting methylprednisone 1000 mg-58 mL per hour Blood pressure-133/81, respiratory rate-18, pulse oxygen 94 on room, WBC-3.7, H&H-12.7/36.9 THAIS-positive. Continue methylprednisone 1000 mg-58 mL/hour -pharmacy to dose Given 15 mg IV ketorolac once Dr. Michael Schulz seen the patient at bedside and recommended cervical collar for neck supple, baclofen 10 mg t.i.d. p.o., continue high-dose methylprednisolone for 3 days, strict bedrest 06/08/2025 Patient vitals are stable H&H 11.5-32 Sodium-133, glucose 135 Dr. Womack neurosurgeon is involved in the care he recommended to Continue high-dose methylprednisolone pharmacy to dose, Baclofen 10 mg p.o. q.8h p.r.n.,Cervical collar for neck Adviseded strict to bedrest Hypothyroidism continue home med levothyroxine 88 mcg Po daily Hyperlipidemia Continue home med atorvastatin 20 mg p.o. Peripheral neuropathy Continue home med gabapentin Code Status: Full code DVT prophylaxis: Lovenox Analgesia/sedation: Morphine/[place] Line/tube: PIV GI prophylaxis: None Nutrition: Regular diet Prognosis: Guarded Disposition : Patient is monitored in Ortho/Neuro and MRI shows -Cord compression with Severe spinal canal stenosis at L4-5, Moderate spinal canal stenosis L5-S1. neural foraminal stenosis in the lumbar spine most pronounced at L4-5 and L5-S1 and patient is started showing improvement in her symptoms after starting Solu-Medrol high dose. Dr. Michael Enriquez is involved in the patient care t recommended cervical collar for neck supple, baclofen 10 mg t.i.d. p.o., continue high-dose methylprednisolone, strict bedrest and planned cervical surgery on Thursday Nasima latif PGY1 PGY2 resident attestation: I have seen and evaluated the patient independently. I have reviewed the history, physical examination, laboratory and imaging findings and the assessment and plan documented by the PGY1 resident. I agree with the findings and plan as documented with the following additions/modifications. Seen & Reviewed & edited the patient note. I agree with Management Plan.Dr.Castro Enriquez is board & patient is getting cervical spinal fusion surgery/Anterior Discectomy. Improving with Steroids. Flip Baker IM resident, PGY2 Date of Service: Jun 08, 2025 Billing Provider: MARICRUZ WRIGHT MD Common Visit Codes: [id number] INP/OBS CARE(HIGH) NASIMA LATIF, THERON Jun 08, 2025 19:50 SABINA BAKER, THERON Jun 08, 2025 21:05 MARICRUZ WRIGHT MD Jun 26, 2025 16:20
[2025-06-09 05:30] LABS: MEAN PLATELET VOLUME 7.3 FL (7.4-10.4); RED CELL DISTRIBUTION WIDTH 14.1 % (11.5-14.5)
[2025-06-09 05:56] LABS: CREATININE 0.91 MG/DL (0.40-0.90); TOTAL CARBON DIOXIDE 28.5 MMOL/L (24-32); eCRCL 47 ML/MIN; eGFR 62 ML/MIN
[2025-06-09 06:00] VITALS: BP 147/77; PULSE 70; RESP 14; TEMP 97.4; O2SAT 97
[2025-06-09 10:00] VITALS: BP 140/81; PULSE 86; RESP 14; TEMP 99; O2SAT 97
[2025-06-09 18:00] VITALS: BP 147/85; PULSE 95; RESP 15; TEMP 98.1; O2SAT 100
--- NOTE | 2025-06-09 18:27 | PROGRESS NOTE- Residence ---
Progress Note - Resident Providers to CC Resident Creating Document: SHERLEY JOYA, THERON ~ Antibiotic Timeout Antibiotic Ordered?: No Subjective Patient was seen and examined at the bedside. She does not have any complaints at the moment. She is wearing her C-collar. Patient is scheduled for surgery with on Thursday Objective Vital Signs Date Time Temp Pulse Resp B/P (MAP) Pulse Ox O2 Delivery O2 Flow Rate FiO2 06/09/25 15:56 17 06/09/25 10:00 99.0 86 140/81 (100) 97 Room Air 06/09/25 08:00 0.0 Result Diagram: 06/09/2551306/09/25513 Awake , alert, and oriented x4, resting comfortably in the bed, no acute distress HEENT: Atraumatic, normocephalic, EOMI, anicteric sclera ; pink conjunctiva Neck: Trachea midline. Supple, full range of motion, no JVD Cardiac: Regular rhythm and rate, no murmurs or gallop Respiratory: Equal breath sounds bilaterally, no tachypnea, no wheezing ,rub or rales, Chest: No accessory muscle use, lung bases clear to auscultation bilaterally Gastrointestinal: Abdomen symmetric, non-distended, soft, non-tender, normal bowel sounds, normoactive, no organomegaly Musculoskeletal: No cyanosis,clubbing or edema Skin: Warm and dry Neurological: patient is alert, oriented. Memory and speech preserved. Cranial nerves II-XII intact Normal motor strength and Sensation in bilateral upper extremities Biceps, knee is +3 reflexes Left lower extremity- Diminished sensation and motor strength 2/5 with 1+ Relexes Right lower extremity- Normal sensation and motor Strenght 3/5 with brisk relexes Marcial sign present on the right No dysdiadochokinesia/nystagmus Digital rectal examination: Rectal tone is reduced and it is very minimal. Coagulation Studies Laboratory Tests Test 06/05/25 19:32 Prothrombin Time 10.1 SECONDS (9.0-12.0) INR International Normalized Ratio 1.0 INR Activated Partial Thromboplast Time 28 SECONDS (22-32) Coagulation Comments Assessment Assessment 64-year-old female with history of hypothyroid and hyperlipidemia admitted for Asymmetric Quadriparesis. Plan Plan Subacute Asymmetric Quadriparesis Left lower extremity weakness Diffuse Moderate to Severe Cervical Spinal Canal Stenosis C3-4 Cord Compression compression of T8-9 with Disc Protrusion Multilevel moderate to severe neural foraminal stenosis in the lumbar spine most pronounced at L4-5 and L5-S1. MRI Head - No acute cerebrovascular ischemia. Prominent size of the lateral ventricles. Correlate for entities such as normal pressure hydrocephalus.Mild chronic microvascular ischemic changes. Cervical Spine MRI- Severe spinal canal stenosis at C3-4 where there is compression/flattening of the cord with increased T2 signal in the cord either representing cord edema or myelomalacia. Recommend neurosurgical consultation. Thoracic Spine: There is a disc protrusion extending 5 mm at T8-9 which compresses upon the ventral aspect of the cord resulting in moderate spinal canal stenosis at T8-9. Lumbar spine: Severe spinal canal stenosis at L4-5. Moderate spinal canal stenosis L5-S1. Multilevel moderate to severe neural foraminal stenosis in the lumbar spine most pronounced at L4-5 and L5-S1. Plan: Neurosurgeon was consulted who recommends surgery on Thursday THAIS-positive. Continue methylprednisone 1000 mg-58 mL/hour -pharmacy to dose Given 15 mg IV ketorolac once Dr. Michael Schulz seen the patient at bedside and recommended cervical collar for neck supple, baclofen 10 mg t.i.d. p.o., continue high-dose methylprednisolone for 3 days, strict bedrest Hypothyroidism continue home med levothyroxine 88 mcg Po daily Hyperlipidemia Continue home med atorvastatin 20 mg p.o. Peripheral neuropathy Continue home med gabapentin Code Status: Full code DVT prophylaxis: Lovenox Analgesia/sedation: Morphine/[place] Line/tube: PIV GI prophylaxis: None Nutrition: Regular diet Prognosis: Guarded Disposition : recommended cervical collar for neck supple, baclofen 10 mg t.i.d. p.o., continue high-dose methylprednisolone, strict bedrest and planned cervical surgery on Thursday Sherley Hoyos MD PGY2 internal medicine resident Date of Service: Jun 09, 2025 Billing Provider: MURTAZA WELLS MD Common Visit Codes: [id number] INP/OBS CARE(HIGH) SHERLEY JOYA, RES Jun 09, 2025 18:27 MURTAZA WELLS MD Jun 09, 2025 18:48
[2025-06-09 20:00] VITALS: RESP 16; O2SAT 95
[2025-06-09 22:00] VITALS: BP 145/97; PULSE 102; RESP 18; TEMP 98.2; O2SAT 99
[2025-06-10 06:39] LABS: MEAN PLATELET VOLUME 7.2 FL (7.4-10.4); RED CELL DISTRIBUTION WIDTH 14.0 % (11.5-14.5)
[2025-06-10 07:04] LABS: CREATININE 0.86 MG/DL (0.40-0.90); TOTAL CARBON DIOXIDE 27.8 MMOL/L (24-32); eCRCL 49 ML/MIN; eGFR 66 ML/MIN
[2025-06-10 10:00] VITALS: BP 135/89; PULSE 79; RESP 16; TEMP 97.9; O2SAT 98
[2025-06-10] MEDS: normal saline 1000ml 1,000 ML IV SCH (12:21)
--- NOTE | 2025-06-10 13:04 | PROGRESS NOTE- Residence ---
Progress Note - Resident Providers to CC Resident Creating Document: JEFFERSON LATIF, RES ~ Antibiotic Timeout Antibiotic Ordered?: No Subjective Patient was seen and examined at the bedside. She denies any new complaint. She is wearing her C-collar and today her urine is Red color. We started IV normal saline 50 mL/hour Requested nurse to get external med rec We discontinued foleys today Patient is scheduled for surgery with on Thursday Objective Vital Signs Date Time Temp Pulse Resp B/P (MAP) Pulse Ox O2 Delivery O2 Flow Rate FiO2 06/10/25 12:21 16 06/09/25 22:00 98.2 102 145/97 (113) 99 Room Air 06/09/25 20:00 0.0 Result Diagram: 06/10/25 0559 06/10/25 0559 Awake , alert, and oriented x4, resting comfortably in the bed, no acute distress HEENT: Atraumatic, normocephalic, EOMI, anicteric sclera ; pink conjunctiva Neck: Trachea midline. Supple, full range of motion, no JVD Cardiac: Regular rhythm and rate, no murmurs or gallop Respiratory: Equal breath sounds bilaterally, no tachypnea, no wheezing ,rub or rales, Chest: No accessory muscle use, lung bases clear to auscultation bilaterally Gastrointestinal: Abdomen symmetric, non-distended, soft, non-tender, normal bowel sounds, normoactive, no organomegaly Musculoskeletal: No cyanosis,clubbing or edema Skin: Warm and dry Neurological: patient is alert, oriented. Memory and speech preserved. Cranial nerves II-XII intact Normal motor strength and Sensation in bilateral upper extremities Biceps, knee is +3 reflexes Left lower extremity- Diminished sensation and motor strength 2/5 with 1+ Relexes Right lower extremity- Normal sensation and motor Strenght 3/5 with brisk relexes Marcial sign present on the right No dysdiadochokinesia/nystagmus Digital rectal examination: Rectal tone is reduced and it is very minimal. Coagulation Studies Laboratory Tests Test 06/05/25 19:32 Prothrombin Time 10.1 SECONDS (9.0-12.0) INR International Normalized Ratio 1.0 INR Activated Partial Thromboplast Time 28 SECONDS (22-32) Coagulation Comments Advance Care Planning Advanced Care plannin - 30 Minutes Assessment Assessment 64-year-old female with history of hypothyroid and hyperlipidemia admitted for Asymmetric Quadriparesis. Plan Plan Subacute Asymmetric Quadriparesis Diffuse Moderate to Severe Cervical Spinal Canal Stenosis C3-4 Cord Compression compression of T8-9 with Disc Protrusion Multilevel moderate to severe neural foraminal stenosis in the lumbar spine most pronounced at L4-5 and L5-S1. Spinal cord edema/myelomalacia in C3-C4 MRI Head - No acute cerebrovascular ischemia. Prominent size of the lateral ventricles. Correlate for entities such as normal pressure hydrocephalus.Mild chronic microvascular ischemic changes. Cervical Spine MRI- severe stenosis, edema, myelomalacia at C3-C4 and scalp rotation at T8-T9 There is a disc protrusion extending 5 mm at T8-9 which compresses upon the ventral aspect of the cord resulting in moderate spinal canal stenosis at T8-9. Lumbar spine: Severe spinal canal stenosis at L4-5. Moderate spinal canal stenosis L5-S1. Multilevel moderate to severe neural foraminal stenosis in the lumbar spine most pronounced at L4-5 and L5-S1. 06/10/2025 Vitals are stable Neurosurgeon Dr. Womack is on board and he will perform cervical fusion with anterior discectomy on Thursday Continue methylprednisone higher dose and baclofen Strict bedrest possible hematuria Today patient urine is bright red in color Ordered urine analysis and follow up with results Continue IV NS 50 mL per hour Discontinue [place] catheter Hypothyroidism continue home med levothyroxine 88 mcg Po daily Hyperlipidemia Continue home med atorvastatin 20 mg p.o. Peripheral neuropathy Continue home med gabapentin Code Status: Full code DVT prophylaxis: Lovenox Analgesia/sedation: Morphine/[place] Line/tube: PIV GI prophylaxis: None Nutrition: Regular diet Prognosis: Guarded Disposition : Patient is going significant improvement after starting steroids and we will continue steroids for [address] Womack will be going to per cervical fusion with anterior diskectomy on Thursday jefferson latif [email or web address] Date of Service: Jun 10, 2025 Billing Provider: MURTAZA WELLS MD Common Visit Codes: [id number] INP/OBS CARE(HIGH) JEFFERSON LATIF, RES Jun 10, 2025 13:04 MURTAZA WELLS MD Jun 11, 2025 15:40
[2025-06-10 18:00] VITALS: BP 132/87; PULSE 91; RESP 15; TEMP 97.6; O2SAT 99
[2025-06-10 19:09] VITALS: RESP 16; O2SAT 95
[2025-06-10 22:00] VITALS: BP 139/89; PULSE 67; RESP 15; TEMP 98.3; O2SAT 97
[2025-06-11 07:01] VITALS: BP 160/77; PULSE 69; RESP 14; TEMP 97.8; O2SAT 99
[2025-06-11 07:30] VITALS: RESP 16; O2SAT 99
[2025-06-11 08:00] VITALS: RESP 16
[2025-06-11 11:05] VITALS: BP 137/92; PULSE 91; RESP 16; TEMP 100.4; O2SAT 97
--- NOTE | 2025-06-11 14:20 | PROGRESS NOTE- Residence ---
Progress Note - Resident Providers to CC Resident Creating Document: JEFFERSON LATIF, RES ~ Antibiotic Timeout Antibiotic Ordered?: No Subjective Patient was seen and examined at the bedside. She denies any new complaint Tomorrow the Patient is scheduled for surgery with Objective Vital Signs Date Time Temp Pulse Resp B/P (MAP) Pulse Ox O2 Delivery O2 Flow Rate FiO2 06/11/25 11:05 100.4 91 16 137/92 (107) 97 Room Air 06/11/25 08:00 0.0 Result Diagram: 06/10/25 0559 06/10/25 0559 Awake , alert, and oriented x4, resting comfortably in the bed, no acute distress HEENT: Atraumatic, normocephalic, EOMI, anicteric sclera ; pink conjunctiva Neck: Trachea midline. Supple, full range of motion, no JVD Cardiac: Regular rhythm and rate, no murmurs or gallop Respiratory: Equal breath sounds bilaterally, no tachypnea, no wheezing ,rub or rales, Chest: No accessory muscle use, lung bases clear to auscultation bilaterally Gastrointestinal: Abdomen symmetric, non-distended, soft, non-tender, normal bowel sounds, normoactive, no organomegaly Musculoskeletal: No cyanosis,clubbing or edema Skin: Warm and dry Neurological: patient is alert, oriented. Memory and speech preserved. Cranial nerves II-XII intact Normal motor strength and Sensation in bilateral upper extremities Biceps, knee is +3 reflexes Left lower extremity- Diminished sensation and motor strength 2/5 with 1+ Relexes Right lower extremity- Normal sensation and motor Strenght 3/5 with brisk relexes Marcial sign present on the right No dysdiadochokinesia/nystagmus Digital rectal examination: Rectal tone is reduced and it is very minimal. Coagulation Studies Laboratory Tests Test 06/05/25 19:32 Prothrombin Time 10.1 SECONDS (9.0-12.0) INR International Normalized Ratio 1.0 INR Activated Partial Thromboplast Time 28 SECONDS (22-32) Coagulation Comments Advance Care Planning Advanced Care plannin - 30 Minutes Assessment Assessment 64-year-old female with history of hypothyroid and hyperlipidemia admitted for Asymmetric Quadriparesis. Plan Plan Subacute Asymmetric Quadriparesis Diffuse Moderate to Severe Cervical Spinal Canal Stenosis C3-4 Cord Compression compression of T8-9 with Disc Protrusion Multilevel moderate to severe neural foraminal stenosis in the lumbar spine most pronounced at L4-5 and L5-S1. Spinal cord edema/myelomalacia in C3-C4 MRI Head - No acute cerebrovascular ischemia. Prominent size of the lateral ventricles. Correlate for entities such as normal pressure hydrocephalus.Mild chronic microvascular ischemic changes. Cervical Spine MRI- severe stenosis, edema, myelomalacia at C3-C4 and scalp rotation at T8-T9 There is a disc protrusion extending 5 mm at T8-9 which compresses upon the ventral aspect of the cord resulting in moderate spinal canal stenosis at T8-9. Lumbar spine: Severe spinal canal stenosis at L4-5. Moderate spinal canal stenosis L5-S1. Multilevel moderate to severe neural foraminal stenosis in the lumbar spine most pronounced at L4-5 and L5-S1. 06/10/2025 Vitals are stable Neurosurgeon Dr. Womack is on board and he will perform cervical fusion with anterior discectomy on Thursday Continue methylprednisone higher dose and baclofen Strict bedrest 06/11/2025 Patient vitals are stable and patient is on strict bedrest with collar Continue methylprednisolone and baclofen NPO midnight and Dr. Womack plan cervical fusion with anterior diskectomy tomorrow possible hematuria Today patient urine is bright red in color Ordered urine analysis and follow up with results Continue IV NS 50 mL per hour Discontinue [place] catheter 06/11/2025 Urinalysis negative Continue IV NS 50 mL/hour Hypothyroidism continue home med levothyroxine 88 mcg Po daily Hyperlipidemia Continue home med atorvastatin 20 mg p.o. Peripheral neuropathy Continue home med gabapentin Code Status: Full code DVT prophylaxis: Heparin Analgesia/sedation: Morphine/[place] Line/tube: PIV GI prophylaxis: None Nutrition: NPO Prognosis: Guarded Disposition : Dr. Womack will be going to per cervical fusion with anterior diskectomy on tomorrow and NPO midnight jefferson latif [email or web address] Date of Service: Jun 11, 2025 Billing Provider: MURTAZA WELLS MD Common Visit Codes: [id number] INP/OBS CARE(MOD) JEFFERSON LATIF RES Jun 11, 2025 14:20 MURTAZA WELLS MD Jun 11, 2025 15:40
[2025-06-11 18:00] VITALS: BP 138/83; PULSE 99; RESP 16; TEMP 97.8; O2SAT 98
--- NOTE | 2025-06-11 19:49 | CONSULTATION REPORT ---
History of Present Illness Providers to CC ~ Reason for Admit\Admit Dx: Left leg weakness Refering MD: Dr. Choe, Dr. Muniz History of Present Illness This is a 64-year-old female patient who presents in the ER for progressive weakness in the left leg and bilateral upper extremities for the past two weeks. Patient felt sudden strength loss in the left leg associated with diminished sensation. She also complains of tingling, numbness and weakness in both hands, more pronounced in the left hand. Patient has chronic left sciatic pain but states that never felt weakness or loss of sensation. She has been unable to ambulate since the symptoms started and has feeling of incomplete voiding, but denies dysuria, hematuria or suprapubic pain. Patient also denies head trauma, headache, blurred vision, slurred speech or syncope. No cardiac, respiratory or abdominal symptoms reported. 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 Neurosurgery was consulted for this reason. Surgical decompression is necessary to prevent further progression of the deficits and on the hope to improve some of her deficits cause by cervical spinal cord compression at those levels Allergies: Coded Allergies: pneumococcal vaccine (Verified Allergy, Intermediate, 06/05/25) Home Medications Home Medications Active Reported Gabapentin 600 Mg Tablet 1 Tab PO DAILY 30 Days Lisinopril* (Lisinopril) 40 Mg Tablet 1 Tab PO DAILY 30 Days Coreg* (Carvedilol) 12.5 Mg Tablet 1 Tab PO DAILY 30 Days Norvasc* (Amlodipine Besylate) 2.5 Mg Tablet 1 Tab PO DAILY 30 Days Lipitor* (Atorvastatin Calcium) 20 Mg Tablet 1 Tablet PO HS Cosentyx Pen (Secukinumab) 150 Mg/Ml Pen.injctr 1 Syr SUBCUT Q28D 30 Days Louisa* (Fexofenadine HCl) 180 Mg Tablet 1 Tab PO DAILY 14 Days Synthroid* (Levothyroxine Sodium) 88 Mcg Tablet 1 Tab PO DAILY 30 Days Wellbutrin SR* (Bupropion HCl) 150 Mg Tablet.sa 2 Tab PO DAILY LOOK-ALIKE SOUND-ALIKE DRUG buSPIRone & buPROPion Tramadol HCl 50 Mg Tablet 1 Tab PO Q6H PRN PRN 7 Days Oxycodone IR* (Oxycodone HCl) 5 Mg Tablet 2 Tab PO Q8H PRN Past Family History Family History: Patient reports no known family medical history. Physical Exam Last Vital Signs Recorded: Temperature: 100.4, Source: Temporal, Heart Rate: 91, Respiratory Rate: 16, BP: 137/92, Pulse Oximetry: 97, Weight: 63.000 General Appearance: alert, no apparent distress EENT: PERRL/EOMI, normal ENT inspection, moist mucous membranes, pharynx normal Neck: normal inspection, supple, non-tender Respiratory: lungs clear Cardiovascular: normal peripheral pulses Gastrointestinal: normal palpation, non-tender, bowels sounds present Bladder: normal, non tender External Genitalia: normal Extremities: normal inspection, normal capillary refill Extremities there is severe hyperreflexia in 4 extremities Pathological, reflexes, Bilateral Campos and babinsky. Decreased sensation in positional modaliti y in upper and lower extremities Moderate weakness strength 4/5 bilateral distal in UE and proximal and distal in LE. decrease sensatio n to vibratory and positional bilateral. gait not possible because of weakness and unsteady. Neurologic: oriented x4, undertaker helper II-XII nml as tested, memory intact Neurologic As per previous note, severe findings of cervical myelopathy. Results Diagram Lab Result Diagram: 06/10/25 0559 06/10/25 0559 Assessment/Plan Problems/Diagnosis: (1) Cervical spondylosis with myelopathy (2) Cervical cord compression with myelopathy Assessment & Plan: Patient has progressive cervical myelopathy with loss of strength in 4 extremities, Loss of propiofception and unable to stand or walk due to this problem. The patient also has thoracic myelopathy dur to dis protrussion in mid thoracic spine but it is of a lesser degree of compression than in vervical level. There is also lumbar spinal stenosis and this problem will have to be addressed surgically later when she recovers from this procedure. Patient has indication for spinal cord decompression at the cervical spoine to hopefully improve some of her neurological deficits and eventually regain the ability to walk and work with her hands. She has severe spinal cord compression of the cervical spine due to spinal stenosis and cervical arthritis. A C3-C4, C4-C5 anterior cercvical discectomy and fusion will be performed.Benefits, risks , and alternatives for the prpocedure were discussed with her and she wants to proceed with surgery. Benefits, risk, alternatives for the procedure were discussed with her and she wants to proceed with surgery. ANA ROSA HANSON MD Jun 11, 2025 19:49
[2025-06-11 22:00] VITALS: BP 148/89; PULSE 76; RESP 16; TEMP 98; O2SAT 98
[2025-06-12] VITALS (21 sets, daily range): BP systolic 141–171; BP diastolic 70–96; PULSE 72–99; RESP 10–18; TEMP 96.8–98.5; O2SAT 95–99
[2025-06-12] MEDS ORDERED: bacitracin 15gm ointment TP ONE (06:35)
[2025-06-12] MEDS ORDERED: gentamicin 40 MG/1 ML inj ONE (06:35)
[2025-06-12] MEDS ORDERED: gelatin sponge, absorbable (Gelfoam 100) sponge TP ONE ×2 (06:36→10:02)
[2025-06-12] MEDS ORDERED: BUPIVAcaine/PF 2.5mg/ml (0.25%) 10ml vial ONE (06:36)
[2025-06-12] MEDS ORDERED: midazolam 1 mg/ML 2ml injection ONE (08:00)
[2025-06-12] MEDS ORDERED: fentaNYL /PF 50mcg/ml 5ml ampule ONE ×2 (08:00→09:19)
[2025-06-12] MEDS ORDERED: rocuronium 10mg/ml inj IV ONE (08:04)
[2025-06-12] MEDS ORDERED: LIDOcaine 2% (20mg/ml) 5ml vial ONE (08:04)
[2025-06-12] MEDS ORDERED: dexamethasone sod phosphate 4mg/ml inj. ONE (08:04)
[2025-06-12] MEDS ORDERED: propofol inj 20 ML IV ONE (08:04)
[2025-06-12] MEDS ORDERED: LIDOcaine 2% jelly 6ml syringe ***for topical use only ONE (08:08)
[2025-06-12] MEDS ORDERED: MESSAGE TO NURSING IV ONE (09:40)
[2025-06-12] MEDS ORDERED: ondansetron/PF 4mg/2ml inj ONE (11:23)
[2025-06-12] MEDS ORDERED: ondansetron/PF 4mg/2ml inj IV PRN ×2 (11:30→11:35)
[2025-06-12] MEDS ORDERED: labetalol 20mg/4ml (5mg/ml) syringe IV PRN (11:30)
[2025-06-12] MEDS ORDERED: HYDROmorphone/PF 0.2 MG/ML SYRINGE IV PRN (11:30)
[2025-06-12] MEDS ORDERED: ringers solution, lacted 1,000 ML IV SCH (11:30)
[2025-06-12] MEDS ORDERED: fentaNYL/PF 50MCG/1 ML 2ML syringe IV PRN ×2 (11:30)
[2025-06-12] MEDS ORDERED: morphine 4 MG/ML inj SYRINge IV PRN ×2 (11:30→11:55)
[2025-06-12] MEDS ORDERED: enalaprilat 1.25mg/ml 2ml vial IV PRN (11:30)
[2025-06-12] MEDS ORDERED: PCA WASTE DOCUMENTATION 1 MG ML MC SCH (11:35)
[2025-06-12] MEDS: HYDROmorphone/PF 0.2 MG/ML SYRINGE IV PRN (11:59)
[2025-06-12] MEDS: morphine 4 MG/ML inj SYRINge IV PRN (15:59)
[2025-06-12] MEDS: ceFAZolin/D5W- 1GM premix 50 ML IV SCH (17:27)
[2025-06-12] MEDS ORDERED: HYDROcodone/acetaminophen 10/325mg tab PO PRN ×3 (17:50→18:55)
[2025-06-12] MEDS ORDERED: HYDROcodone/acetaminophen 5mg/325mg tablet PO PRN ×2 (17:50→17:55)
[2025-06-12] MEDS: HYDROcodone/acetaminophen 10/325mg tab PO PRN (19:02)
--- NOTE | 2025-06-12 19:19 | PROGRESS NOTE- Residence ---
Progress Note - Resident Providers to CC Resident Creating Document: JEFFERSON LATIF RES ~ Antibiotic Timeout Antibiotic Ordered?: Yes Subjective Patient was seen and examined at the bedside.denies any complaints and patient is having blood pressure running at 150/80s Objective Vital Signs Date Time Temp Pulse Resp B/P (MAP) Pulse Ox O2 Delivery O2 Flow Rate FiO2 06/12/25 19:02 15 06/12/25 18:00 97.8 77 166/88 (114) 98 Room Air 06/12/25 11:50 6.0 Result Diagram: 06/10/25 0559 06/10/25 0559 Awake , alert, and oriented x4, resting comfortably in the bed, no acute distress HEENT: Atraumatic, normocephalic, EOMI, anicteric sclera ; pink conjunctiva Neck: Trachea midline. Supple, full range of motion, no JVD Cardiac: Regular rhythm and rate, no murmurs or gallop Respiratory: Equal breath sounds bilaterally, no tachypnea, no wheezing ,rub or rales, Chest: No accessory muscle use, lung bases clear to auscultation bilaterally Gastrointestinal: Abdomen symmetric, non-distended, soft, non-tender, normal bowel sounds, normoactive, no organomegaly Musculoskeletal: No cyanosis,clubbing or edema Skin: Warm and dry Neurological: patient is alert, oriented. Memory and speech preserved. Cranial nerves II-XII intact Normal motor strength and Sensation in bilateral upper extremities Biceps, knee is +3 reflexes Left lower extremity- Diminished sensation and motor strength 2/5 with 1+ Relexes Right lower extremity- Normal sensation and motor Strenght 3/5 with brisk relexes Marcial sign present on the right No dysdiadochokinesia/nystagmus Coagulation Studies Laboratory Tests Test 06/05/25 19:32 Prothrombin Time 10.1 SECONDS (9.0-12.0) INR International Normalized Ratio 1.0 INR Activated Partial Thromboplast Time 28 SECONDS (22-32) Coagulation Comments Assessment Assessment 64-year-old female with history of hypothyroid and hyperlipidemia admitted for Asymmetric Quadriparesis with cervical, thoracic, lumbar spine stenosis Plan Plan Subacute Asymmetric Quadriparesis Diffuse Moderate to Severe Cervical Spinal Canal Stenosis C3-4 Cord Compression s/p cervical fusion with discectomy compression of T8-9 with Disc Protrusion Multilevel moderate to severe neural foraminal stenosis in the lumbar spine most pronounced at L4-5 and L5-S1. Spinal cord edema/myelomalacia in C3-C4 MRI Head - No acute cerebrovascular ischemia. Prominent size of the lateral ventricles. Correlate for entities such as normal pressure hydrocephalus.Mild chronic microvascular ischemic changes. Cervical Spine MRI- severe stenosis, edema, myelomalacia at C3-C4 and scalp rotation at T8-T9 There is a disc protrusion extending 5 mm at T8-9 which compresses upon the ventral aspect of the cord resulting in moderate spinal canal stenosis at T8-9. Lumbar spine: Severe spinal canal stenosis at L4-5. Moderate spinal canal stenosis L5-S1. Multilevel moderate to severe neural foraminal stenosis in the lumbar spine most pronounced at L4-5 and L5-S1. 06/10/2025 Vitals are stable Neurosurgeon Dr. Womack is on board and he will perform cervical fusion with anterior discectomy on Thursday Continue methylprednisone higher dose and baclofen Strict bedrest 06/11/2025 Patient vitals are stable and patient is on strict bedrest with collar Continue methylprednisolone and baclofen NPO midnight and Dr. Womack plan cervical fusion with anterior diskectomy tomorrow 06/12/2025 Patient underwent cervical diskectomy with cervical fusion with Dr. Womack today and her vitals are 158/94, pulse rate 74, 98% SpO2 on room air Continue pain control with morphine/hydrocodone Started clear liquid diet Started cefazolin 1 g IV q.8h Follow-up with cervical spine x-ray possible hematuria Today patient urine is bright red in color Ordered urine analysis and follow up with results Continue IV NS 50 mL per hour Discontinue [place] catheter 06/11/2025 Urinalysis negative Continue IV NS 50 mL/hour Hypothyroidism continue home med levothyroxine 88 mcg Po daily Hyperlipidemia Continue home med atorvastatin 20 mg p.o. Peripheral neuropathy Continue home med gabapentin Hypertension: Patient blood pressure is 150-160/80 possible due to pain Code Status: Full code DVT prophylaxis: Heparin Analgesia/sedation: Morphine/[place]/tube: PIV GI prophylaxis: None Nutrition: NPO Prognosis: Guarded Disposition : Dr. Womack did cervical spine fusion with discectomy , patient is started on antibiotic and we will continue to monitor the patient jefferson latif [email or web address] Date of Service: Jun 12, 2025 Billing Provider: MURTAZA WELLS MD Common Visit Codes: 24831-[id number] INP/OBS CARE(HIGH) JEFFERSON LATIF, RES Jun 12, 2025 19:19 MURTAZA WELLS MD Jun 13, 2025 16:34
[2025-06-13 02:00] VITALS: BP 157/89; PULSE 73; RESP 15; TEMP 97.5; O2SAT 97
[2025-06-13] MEDS ORDERED: magnesium hydroxide 30ml (MOM) UD suspension PO PRN (05:00)
[2025-06-13 05:39] LABS: MEAN PLATELET VOLUME 7.0 FL (7.4-10.4); RED CELL DISTRIBUTION WIDTH 13.8 % (11.5-14.5)
[2025-06-13 05:45] LABS: TOTAL CARBON DIOXIDE 28.1 MMOL/L (24-32)
[2025-06-13 06:20] VITALS: BP 157/89; PULSE 77; RESP 14; TEMP 97; O2SAT 97
[2025-06-13] MEDS ORDERED: docusate sod 100mg capsule PO SCH (08:00)
[2025-06-13] MEDS: ondansetron/PF 4mg/2ml inj IV PRN (09:38)
[2025-06-13 10:00] VITALS: BP 136/81; PULSE 77; RESP 14; TEMP 97.6; O2SAT 97
--- NOTE | 2025-06-13 11:15 | RADIOLOGY REPORT ---
[facility] INDICATION: check hardware COMPARISON: DI CERVICAL SPINE LTD on DOS: 06/12/25, MR MRI C SPINE on DOS: 06/06/25 TECHNIQUE: 3 views of the cervical spine were obtained. FINDINGS: Postsurgical changes at C4-C5 through C5-C6. Surgical skin radha are present. Soft tissue swelling is present. Anatomic alignment. No acute fracture, vertebral compression deformity or aggressive osseous lesions. The imaged lung apices are unremarkable. IMPRESSION: No acute fracture.
--- NOTE | 2025-06-13 13:04 | RADIOLOGY REPORT ---
C-ARM FLUOROSCOPY: PROCEDURE:CERVICAL FUSION C3-4, C4-5 FLUOROSCOPY TIME: 1.2 MIN DAP: 6.1 mgy FINDINGS: Spot intraoperative C arm radiographs demonstrating CERVICAL FUSION C3-4, C4-5 . IMPRESSION: Please refer to surgical report for detailed findings.
[2025-06-13 14:13] VITALS: BP_SYST 136; PULSE 77
[2025-06-13 16:47] VITALS: RESP 16
--- NOTE | 2025-06-13 20:56 | DISCHARGE SUMMARY-Residence ---
Discharge Summary Providers to CC Resident Creating Document: NASIMA AGUILAR, RES ~ Discharge Summary Admission Diagnosis: PROGRESSIVE WEAKNESS Hospital Course DATE OF ADMISSION: 06/05/2025 DATE OF DISCHARGE: 06/13/2025 Discharge Diagnosis\Comment: Subacute Asymmetric Quadriparesis Diffuse Moderate to Severe Cervical Spinal Canal Stenosis C3-4 Cord Compression compression of T8-9 with Disc Protrusion Multilevel moderate to severe neural foraminal stenosis in the lumbar spine most pronounced at L4-5 and L5-S1. Spinal cord edema/myelomalacia in C3-C4 Hypothyroidism Hyperlipidemia Peripheral neuropathy Hypertension Operations\Procedures: C3-C4, C4-C5 anterior cercvical discectomy and fusion Consultants: Dr. Womack Complications: None Condition on DC: Stable for transfer Discharge Summary: History of presenting illness This is a 64-year-old female patient who presents in the ER for progressive weakness in the left leg and bilateral upper extremities for the past two weeks. Patient felt sudden strength loss in the left leg associated with diminished sensation. She also complains of tingling, numbness and weakness in both hands, more pronounced in the left hand. Patient has chronic left sciatic pain but states that never felt weakness or loss of sensation. She has been unable to ambulate since the symptoms started and has feeling of incomplete voiding, but denies dysuria, hematuria or suprapubic pain. Patient also denies head trauma, headache, blurred vision, slurred speech or syncope. No cardiac, respiratory or abdominal symptoms reported. Hospital course 64 years old female who presented to ER with progressive weakness in the left leg and bilateral upper extremity for 2 weeks and her initial head CT of head and MRI ruled out stroke, and lumbar, cervical, thoracic MRI Showed Diffuse Moderate to Severe Cervical Spinal Canal Stenosis, C3-4 Cord Compression s/p cervical fusion with, discectomy , compression of T8-9 with Disc Protrusion, Multilevel moderate to severe neural foraminal stenosis in the lumbar spine most pronounced at L4-5 and L5-S1.,Spinal cord edema/myelomalacia in C3-C4 and neurosurgeon Dr. Womack was consulted and he did C3-C4, C4-C5 anterior cercvical discectomy and fusion and patient recovered from the surgery and transferred to long-term facility. Vital Signs Date Time Temp Pulse Resp B/P (MAP) Pulse Ox O2 Delivery O2 Flow Rate FiO2 06/13/25 16:47 16 06/13/25 14:13 77 06/13/25 10:00 97.6 136/81 (99) 97 Room Air 06/12/25 11:50 6.0 Laboratory Tests Test 06/12/25 06:59 06/13/25 05:14 Glucometer 75 mg/dl White Blood Count 9.9 X10'3 Red Blood Count 3.65 X10'6 Hemoglobin 11.8 g/dl Hematocrit 34.4 % Mean Corpuscular Volume 94.2 FL Mean Corpuscular Hemoglobin 32.3 PG Mean Corpuscular Hemoglobin Concent 34.3 g/dL Red Cell Distribution Width 13.8 % Platelet Count 326 X10'3 Mean Platelet Volume 7.0 FL Neutrophils (%) (Auto) 61.6 % Lymphocytes (%) (Auto) 24.1 % Monocytes (%) (Auto) 13.2 % Eosinophils (%) (Auto) 0.8 % Basophils (%) (Auto) 0.3 % Neutrophils # (Auto) 6.1 X10'3 Lymphocytes # (Auto) 2.4 X10'3 Monocytes # (Auto) 1.3 X10'3 Eosinophils # (Auto) 0.1 X10'3 Basophils # (Auto) 0.0 X10'3 CBC Comment Sodium Level 137 MMOL/L Potassium Level 3.5 MMOL/L Chloride Level 103 MMOL/L Carbon Dioxide Level 28.1 MMOL/L Anion Gap 6 Chemistry Comments Physical examination Awake , alert, and oriented x4, resting comfortably in the bed, no acute distress HEENT: Atraumatic, normocephalic, EOMI, anicteric sclera ; pink conjunctiva Neck: Trachea midline. Supple, full range of motion, no JVD Cardiac: Regular rhythm and rate, no murmurs or gallop Respiratory: Equal breath sounds bilaterally, no tachypnea, no wheezing ,rub or rales, Chest: No accessory muscle use, lung bases clear to auscultation bilaterally Gastrointestinal: Abdomen symmetric, non-distended, soft, non-tender, normal bowel sounds, normoactive, no organomegaly Musculoskeletal: No cyanosis,clubbing or edema Skin: Warm and dry Neurological: patient is alert, oriented. Memory and speech preserved. Cranial nerves II-XII intact Normal motor strength and Sensation in bilateral upper extremities Biceps, knee is +3 reflexes Left lower extremity- Diminished sensation and motor strength 2/5 with 1+ Relexes Right lower extremity- Normal sensation and motor Strenght 3/5 with brisk relexes Marcial sign present on the right Imaging in hospital Knee x-ray-no acute bony pathology Foot/ankle x-ray-no acute bony pathology Chest x-ray-he lungs are clear. The cardiomediastinal silhouette is u nremarkable. No pleural effusion or pneumothorax. No acute osseous abnormality. Head CT_No acute intracranial hemorrhage.Moderate generalized volume loss with chronic small vessel ischemic change. There is greater than expected compensatory enlargement of the ventricular system which could represent normal pressure hydrocephalus in the correct clinical setting. Correlate clinically for NPH. Pelvis CT-No acute pelvic finding. HEAD MRI : No acute cerebrovascular ischemia. Prominent size of the lateral ventricles. Correlate for entities such as normal pressure hydrocephalus. Mild chronic microvascular ischemic changes. Cervical spine MRI The lumbar vertebral body heights are maintained. Moderate to severe multilevel disc space narrowing and desiccation most pronounced at L4-5. Degenerative fatty endplate changes at L2-3. There are also marrow edematous changes at L2-3. The conus terminates at the level of the L1-2 disc space level. T12-L1: Small disc protrusion. Fluj-jo-svmcxyhv facet and flavum hypertrophy no spinal canal stenosis. Mild bilateral neural foraminal stenosis. L1-2: 3 mm disc protrusion. Gyyw-uw-qnqbyvyu facet and flavum hypertrophy. No spinal canal stenosis. Zrbf-tw-oooleror bilateral neural foraminal stenosis. L2-3: 3 mm disc protrusion. Iren-zj-bfjhxoid facet and flavum hypertrophy. No spinal canal stenosis moderate to severe left and moderate right neural foraminal stenosis. L3-4: 2 mm disc protrusion. Gfmv-gd-sxovhmbh facet and flavum hypertrophy. No spinal canal stenosis. Moderate to severe bilateral neural foraminal stenosis. L4-5: Broad-based disc protrusion extending 5 mm posteriorly. Severe facet and flavum hypertrophy. Thecal sac measures 5 mm AP. Severe spinal canal stenosis. Severe bilateral neural foraminal stenosis. L5-S1: 3 mm disc protrusion. Severe facet and flavum hypertrophy thecal sac measures 6 mm AP. Moderate spinal canal stenosis. Severe bilateral neural foraminal stenosis. Colonic diverticular disease.m perineural ceases at S2 measuring 1.8 cm Lumbar spine MRI IMPRESSION: Examination degraded by motion. Cervical Spine: Moderate to severe cervical degenerative disc disease. Severe spinal canal stenosis at C3-4 where there is compression/flattening of the cord with increased T2 signal in the cord either representing cord edema or myelomalacia. Recommend neurosurgical consultation. Moderate spinal canal stenosis at C4-5. Ptod-rz-eyctkmzq spinal canal stenosis C5-6. Mild spinal canal stenosis C6-7. Multilevel moderate to severe cervical neural foraminal stenosis described. Thoracic Spine: Region of increased T2 signal within the cervical cord at the level the C5 level measuring 3 x 3 mm, possibly myelomalacia however underlying cervical lesion can not be ruled out. Recommend cervical spine MRI with contrast. Wgev-ho-mcrfxwov thoracic degenerative disc disease. There is a disc protrusion extending 5 mm at T8-9 which compresses upon the ventral aspect of the cord resulting in moderate spinal canal stenosis at T8-9. Lumbar spine: Severe spinal canal stenosis at L4-5. Moderate spinal canal stenosis L5-S1. Multilevel moderate to severe neural foraminal stenosis in the lumbar spine most pronounced at L4-5 and L5-S1. Lumbar spine CT 1. No definite acute fracture. 2. Severe degenerative disc disease throughout the lumbar spine. 3. Bones appear mildly demineralized with no discrete lesion seen on CT. Cervical spine x-ray_No acute fracture. Discharge instructions Continue prednisone 30 mg for 3 days, 20 mg for next 3, 10 mg for next 3 days, 5 mg for next 3 and continue baclofen 10 mg q.8 p.o. p.r.n. continue Lovenox 40 mg subcutaneous for 21 days follow-up with PCP in 1 week follow up with Dr. Womack a neurosurgeon in a week *Problems/Diagnosis: (1) Cervical spondylosis with myelopathy (2) Cervical cord compression with myelopathy Total Time Spent on D/C: Up to 30 Minutes Date of Service: Jun 13, 2025 Billing Provider: MURTAZA WELLS MD Common Visit Codes: 19497-CNI/OBS DISCH DAY >30min NASIMA AGUILAR, THERON Jun 13, 2025 20:55 MURTAZA WELLS MD Jun 14, 2025 08:45
--- NOTE | 2025-07-13 15:14 | OPERATIVE REPORT ---
Operative Report Providers to CC CC: ANA ROSA HANSON MD ~This is a 64-year-old female patient who presents in the ER for progressive weakness in the left leg and bilateral upper extremities for the past two weeks. Patient felt sudden strength loss in the left leg associated with diminished sensation. She also complains of tingling, numbness and weakness in both hands, more pronounced in the left hand. Patient has chronic left sciatic pain but states that never felt weakness or loss of sensation. She has been unable to ambulate since the symptoms started and has feeling of incomplete voiding, but denies dysuria, hematuria or suprapubic pain. Patient also denies head trauma, headache, blurred vision, slurred speech or syncope. No cardiac, respiratory or abdominal symptoms reported. 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 Neurosurgery was consulted for this reason. Surgical decompression is necessary to prevent further progression of the deficits and on the hope to improve some of her deficits cause by cervical spinal cord compression at those levels Date of Procedure: Jun 12, 2025 Pre-Operative Diagnosis: Cervical radiculopathy, Cervical myelopathy, Cervical spinal stenosis Post-Operative Diagnosis SAME as PRE-Op Procedure Performed Anterior cervical discectomy and fusion C3-C4 and C4-C5 Surgeon: Ana Rosa Enriquez MD Customer Business Manager None Anesthesiologist: Phu Guy Type of Anesthesia: General Findings: As per post op diagnosis Complications None Estimated Blood Loss: 20 cc Specimen Removed: none Description of Procedure: The patient was brought to the operating table, was placed in the stretcher beside the operating table. Large-bore peripheral IVs were put in place. Anesthesia was induced for IV sedation. The patient was intubated through orotracheal intubation. The patient was intubated without any mobilization of the neck. Maintaining good stabilization and after this central line, arterial line and [place] catheter were put in place, The patient was then placed in a donut head of digital and a shoulder roll as well as a smaller neck roll to stabilize the neck in slight lordosis. All pressure points were padded and patient secures. Hair was removed and the anterior cervical region was prepped and draped in the usual fashion. A transverse incision was performed in anterior cervical region from the midline towards the sternocleidomastoid muscle on the right comprising the skin and subcutaneous tissue and hemostasis was revised with bipolar coagulation. The platysma muscle was incised vertically and was dissected from the surrounding tissues, especially the anterior border of the sternocleidomastoid muscle superiorly and inferiorly. Dissection was continued medial to the carotid sheath and the dissection was carried out retracting the pharynx and larynx medially and the sternocleidomastoid muscle and carotid sheath laterally. The mid cervical aponeurosis was then incised and the retropharyngeal space and prevertebral space was entered. The longus bryan muscles were visualized then detached from the anterior aspect of the vertebral bodies. An 18-gauge needle was placed in the space to further confirm the correct level at C3-C4 and then the dissection of the longus bryan muscles were carried out laterally exposing the anterior aspect of C5. Trimline retractors were put in place to maintain the retraction of the longus bryan muscles laterally and then vertebral body [place] pins/posts were placed at C3 and C4 vertebral body. Retractor was put in place to stabilize the spine. The anterior aspect of the anterior longitudinal ligament and the annulus fibrosis of C3-C4 was incised with electro knife and 15 blade and the contents o f the disks with pituitary forceps and curettes adequately down to the posterior longitudinal ligament. Then, at this point, the contents of the disc at C3-C4 was resected with the help curettes and pituitary forceps and of the high speed drill and mastic device in its entirety until the spinal canal was completely decompressed and the structures were visualized of the dura mater that was intact and at this point then the posterior aspect of the endplates and uncovertebral processes were removed with right angle curettes, and [place] 1, 2 and 3 mm?the endplates were prepared for grafting the inferior endplate of C3 and superior endplate of C4. The trial for the intervertebral cage was introduced with help of X rays visualization.?introducer with the help of C-spine x-rays with anterior and lateral projections to span between the inferior endplate of C3 and the superior endplate of C4. After good decompressed was achieved, an appropriate size Alfate[employer] cage was then filled with combine autograft/allograft ??Fluoroscopy was used to ensure good placed alfatech cage placement that was introduced with special introducer and gentle tapping maneuvers monitor with lateral c spine X rays.?Using Awl tool perforation were performed through the channels of the cage superiorly and inferiorly into the vertebral bodies of C3 and c4 and self tapping screws 16mm length, 3.5 mm diameter were placed trough the cage into the vertebral bodies of c3 and c4 through the endplates securing the implant. After AP and lateral X rays were completed and the introducer was removed, the hemostasis was revised with bipolar coagulation and saline solution. The retractors were removed and repositioned at the C4-C5 level were the exact same procedure was performed to perform the discectomy and cage placement at C4-C5 level. ?The platysma muscle was closed with interrupted suture of 2-0 Vicryl. The skin was closed in two layers with 2-0 Vicryl , then radha and opsite.?? the patient was then taken to the recovery room in stable general and neurological conditions. To continue his care. The neurological condition remained stable. No complications Counts repoted as correct: Yes ANA ROSA HANSON MD Jul 13, 2025 15:14
== END 2025-06-13 17:35 | DRG 471 ==
LOC: ER 12:40 → ED HOLD 21:37 → ORTHO 4S 23:05
PROVIDERS: ADMIT Internal Medicine; ATTEND Family Medicine
PROC: 0RB30ZZ Excision of Cervical Vertebral Disc, Open Approach (ICD-10-PCS; 2025-06-12)
PROC: 00NW0ZZ Release Cervical Spinal Cord, Open Approach (ICD-10-PCS; 2025-06-12)
PROC: 0RG20AJ Fusion of 2 or more Cervical Vertebral Joints with Interbody Fusion Device, Posterior Approach, Anterior Column, Open Approach (ICD-10-PCS; principal; 2025-06-12 07:57)
DX: M48.02 Spinal stenosis, cervical region (principal); G82.50 Quadriplegia, unspecified; G95.19 Other vascular myelopathies; I10 Essential (primary) hypertension; E03.9 Hypothyroidism, unspecified; F32.A Depression, unspecified; M47.12 Other spondylosis with myelopathy, cervical region; G95.20 Unspecified cord compression; M48.061 Spinal stenosis, lumbar region without neurogenic claudication; G62.9 Polyneuropathy, unspecified; M47.22 Other spondylosis with radiculopathy, cervical region; M54.32 Sciatica, left side; Z79.899 Other long term (current) drug therapy
CPT/HCPCS: 36415; 70450; 70551; 71045; 72040; 72131; 72141; 72147; 72148; 72192; 73564; 73610; 76000; 80048; 80051; 80053; 80061; 81003; 82550; 82607; 82948; 83036; 83735; 84100; 84443; 84484; 85025; 85027; 85610; 85651; 85730; 86038; 86885; 86900; 86901; 87081; 93005; 97110; 97116; 97161; 97530; 99285; A4215; A4314; A4618; A6258; A6449; A7000; C1713; C1758; G0378; J0690; J1100; J1171; J1580; J1650; J1885; J2003; J2250; J2270; J2405; J2704; J2919; J3010; J3490; J7030; J7050; J7060; J7120; J7121; L0172